=== PATIENT | female | born 1975 | race Caucasian/White ===

== ENCOUNTER 2024-03-27 10:45 | Emergency (ER) | payer BC, SELFPAY ==
[2024-03-27] VITALS (10 sets, daily range): BP systolic 134–213; BP diastolic 75–107; BMI 35.9
[2024-03-27 11:16] LABS: % Basophils 0.4 % (0-2); % Eosinophils 0.4 % (0-6); % Immature Granulocytes 0.3 % (0-0.5); % Lymphocytes 17.2 % (20.5-51.1); % Monocytes 5.8 % (1.7-9.3); % Neutrophils 75.9 % (42.2-75.2); Absolute Lymphocytes 1.3 10^3/uL (1.2-3.4); Absolute Monocytes 0.4 10^3/uL (0.1-0.6); Absolute Neutrophils 5.7 10^3/uL (1.4-6.5); Hematocrit 39.3 % (37.0-47.0); Hemoglobin 12.7 g/dL (12.0-16.0); Mean Corp Hgb Conc. 32.3 g/dL (33.0-37.0); Mean Corpuscular Hgb 24.3 pg (27.0-31.0); Mean Corpuscular Volume 75.1 fL (81.0-99.0); Mean Platelet Volume 9.8 fL (7.4-10.4); Nucleated Red Blood Cells % 0 %; Platelet Count 277 10^3/uL (130-400); Red Blood Cell Count 5.23 10^6/uL (4.20-5.40); Red Cell Dist. Width 23.3 % (11.5-14.5); White Blood Cell Count 7.6 10^3/uL (4.8-10.8)
[2024-03-27 11:48] LABS: HCG, Serum Qualitative Screen Negative
[2024-03-27 11:52] LABS: ALT (SGPT) 24 U/L (0-35); AST (SGOT) 29 U/L (14-36); Albumin 4.7 g/dl (3.5-5.0); Alkaline Phosphatase 69 U/L (38-126); Blood Urea Nitrogen 17 mg/dl (7-17); Calcium 9.4 mg/dl (8.4-10.2); Carbon Dioxide 27 mmol/L (22-30); Chloride 102 mmol/L (98-107); Estimated Creatinine Clearance 107 ml/min; Glucose 109 mg/dl (70-99); Sodium 137 mmol/L (135-145); Total Bilirubin 0.6 mg/dl (0.2-1.3); Total Protein 7.2 g/dl (6.3-8.2); eGFR > 60.00
--- NOTE | 2024-03-27 12:14 | ED.GENMED ---
History of Present Illness
<Clif Malcolm MD, Resident - Last Filed: 03/28/24 07:26>
General
Chief Complaint: Vaginal Bleeding
Time Seen by Provider: 03/27/24 11:36
History of Present Illness
History of Present Illness:
48-year-old female presented to the ED with complaints of vaginal bleeding. Patient states that her symptoms started 8 months ago when she noticed change in her cycles. Patient reports of breakthrough bleeding, intermenstrual bleeding which occurs
for 1 to 2 days with light flow. Patient states that this time her cycle started on March 20 and almost ended on March 26. Yesterday after dinner around 8 PM patient noticed trickle of blood flowing she, she had to change pads every hour , soaked with
blood and very large clots . Some of the clots were so large that she had to manually push them down. Bleeding was accompanied with lower abdominal cramps. Patient denies postcoital bleeding, pain with defecation, constant abdominal pain.
Past History
<Clif Malcolm MD, Resident - Last Filed: 03/28/24 07:26>
Past History
ED Past Medical History: HTN and Other (Benign PVCs )
ED Past Surgical History:
Social History
Tobacco: Non-smoker
Alcohol: None
Personal:
Living: with family
Family History
Family History: Other (Colon cancer and lung cancer )
Phy Exam
<Clif Malcolm MD, Resident - Last Filed: 03/28/24 07:26>
Physical Exam
Physical Exam:
well appearing, no apparent distress
General Physical Exam
General Presentation: well appearing and no apparent distress
Cardiovascular Exam
Cardiovascular Exam: regular rate/rhythm
Pulmonary Exam
Pulmonary Exam: lungs clear
Gastrointestinal Exam
Gastrointestinal Exam: normal bowel sounds, non tender, soft and non distended
Course
<Clif Malcolm MD, Resident - Last Filed: 03/28/24 07:26>
Orders/Labs/Results
Orders:
Orders
03/27/24 11:03
Test Result ONCE
03/27/24 11:08
Complete Blood Count/With Diff Urgent
Comprehensive Metabolic Panel Urgent
Ferritin Urgent
Comment: ADD ON
HCG, Serum Qualitative Screen Urgent
03/27/24 12:22
Add On- LAB Urgent
Tests Added?: ferritin
03/27/24 12:34
US Pelvis W Transvag Combined Urgent
Reason For Exam: abnormal uterine bleeding
03/27/24 15:55
Tranexamic Acid [Cyklokapron] 1,300 mg PO ONCE ONE
Abnormal Lab Results
03/27/24
11:08
MCV 75.1 L fL
(81.0-99.0)
MCH 24.3 L pg
(27.0-31.0)
MCHC 32.3 L g/dL
(33.0-37.0)
RDW 23.3 H %
(11.5-14.5)
Neutrophils % 75.9 H %
(42.2-75.2)
Lymphocytes % 17.2 L %
(20.5-51.1)
Glucose 109 H mg/dl
(70-99)
03/27/24 11:08
03/27/24 11:08
Vital Signs
Initial and Last Documented VS:
Initial Vital Signs
Temp Pulse Resp BP Pulse Ox
98.2 F 66 16 191/107 98
03/27/24 11:01 03/27/24 11:01 03/27/24 11:01 03/27/24 11:01 03/27/24 11:01
Last Documented Vital Signs
Temp Pulse Resp BP Pulse Ox
98.2 F 55 18 171/88 99
03/27/24 11:01 03/27/24 16:18 03/27/24 16:17 03/27/24 16:17 03/27/24 16:17
<Fernando Tanner MD - Last Filed: 03/27/24 17:23>
Orders/Labs/Results
Orders:
Orders
03/27/24 11:03
Test Result ONCE
03/27/24 11:08
Complete Blood Count/With Diff Urgent
Comprehensive Metabolic Panel Urgent
Ferritin Urgent
Comment: ADD ON
HCG, Serum Qualitative Screen Urgent
03/27/24 12:22
Add On- LAB Urgent
Tests Added?: ferritin
03/27/24 12:34
US Pelvis W Transvag Combined Urgent
Reason For Exam: abnormal uterine bleeding
03/27/24 15:55
Tranexamic Acid [Cyklokapron] 1,300 mg PO ONCE ONE
Abnormal Lab Results
03/27/24
11:08
MCV 75.1 L fL
(81.0-99.0)
MCH 24.3 L pg
(27.0-31.0)
MCHC 32.3 L g/dL
(33.0-37.0)
RDW 23.3 H %
(11.5-14.5)
Neutrophils % 75.9 H %
(42.2-75.2)
Lymphocytes % 17.2 L %
(20.5-51.1)
Glucose 109 H mg/dl
(70-99)
03/27/24 11:08
03/27/24 11:08
Vital Signs
Initial and Last Documented VS:
Initial Vital Signs
Temp Pulse Resp BP Pulse Ox
98.2 F 66 16 191/107 98
03/27/24 11:01 03/27/24 11:01 03/27/24 11:01 03/27/24 11:01 03/27/24 11:01
Last Documented Vital Signs
Temp Pulse Resp BP Pulse Ox
98.2 F 55 18 171/88 99
03/27/24 11:01 03/27/24 16:18 03/27/24 16:17 03/27/24 16:17 03/27/24 16:17
<Clif Malcolm MD, Resident - Last Filed: 03/28/24 07:26>
*Critical Care Note
Total Time (30-74mins, 75-104mins- exclusive of procedures): Not Applicable
<Clif Malcolm MD, Resident - Last Filed: 03/28/24 07:26>
Update Note
Update Note:
48-year-old female presented to the ED with abnormal uterine bleeding .
D/D-
#1 leiomyoma- more likely #2 endometrial cervical polyps #3 premenopausal symptoms
Patient is hemodynamiccaly stable, no hemorrhage.
-Will check CBC, B- HcG, Pelvic US
- Repeat H&h in 2 hours
-If everything stable then trial of OCP to decrease vaginal bleeding
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
ED Attending Note
<Clif Malcolm MD, Resident - Last Filed: 03/28/24 07:26>
-
Portions of this chart may have been created with voice recognition software.� Occasional wrong word or��sound alike� substitutions may have occurred due to the inherent limitations of voice recognition software.
<Fernando Tanner MD - Last Filed: 03/27/24 17:23>
ED Attending Note
Patient seen and examined by attending physician: Yes
I performed a history and physical exam of patient and discussed management with resident, I reviewed resident's note and agree with documented findings and plan of care.: Yes
ED Attending Note:
I have seen and evaluated the patient with a [id number] encounter. I have spoken to the resident and involved in the medical history, the physical exam, medical decision making.
Evaluation and management service: agree unless noted differently below.
Results interpretation: agree unless noted differently below.
Focused HPI: 48-year-old female with past medical history of hypertension presents to the emergency room for evaluation of vaginal bleeding. Patient reports that she started her normal menstrual period 03/20/2024 and was having bleeding for about 6
days; she says over the past few days she had essentially no bleeding only slight spotting but today when she woke up had heavy bleeding once again weeks with clots. She does note that generally speaking over the past 8 to 10 months her menstrual
periods have been longer than usual and heavier than usual but have not typically last this long and she does not typically have rebound or bleeding like this. Came to the emergency room for assessment. She denies any dizziness or lightheadedness.
She denies any abdominal pain. She denies any chest pain or shortness of breath. She denies any other complaints.
Physical exam: Awake alert not in distress. Hypertensive but otherwise normal vitals. Abdomen soft, nontender to deep palpation. On pelvic examination she has some pooling of blood in the vaginal vault with clots but no heavy hemorrhage, closed
os.
Medical Decision Makin-year-old female presents for evaluation of dysfunctional uterine bleeding. Will send labs including a CBC and a CMP, hCG. Check pelvic ultrasound. Reassess after the above.
Labs reviewed: CBC shows normal hemoglobin, CMP unremarkable. hCG negative. Pelvic ultrasound shows some heterogeneity of the endometrium�cannot exclude endometrial mass. Case discussed with BUSINESS QUALITY ASSURANCE ANALYST. Recommended treating with TXA for bleeding.
They will follow-up with patient in the office. Patient is comfortable this plan. Provided first dose of TXA here. All questions answered.
Discharge Plan
Departure
Patient Disposition: Home (Routine Discharge)
Date of Disposition: 03/27/24
Time of Disposition: 15:55
Patient with high blood pressure during this ER visit?: Yes
Discharge Problem:
Dysfunctional uterine bleeding, Hypertension
Instructions: Heavy Periods (DC), BLOOD PRESSURE
Prescriptions:
New
tranexamic acid 650 mg tablet
1,300 mg PO TID 5 Days Qty: 30 0RF
No Action
Labetalol
100 mg PO BID
ibuprofen 200 MG capsule
400 mg PO Q4H
PERCOCET 5-325 MG TABLET
1 tab PO Q4H PRN (Reason: pain)
doxycycline hyclate 100 mg capsule
100 mg PO BID Qty: 14 0RF
oxycodone-acetaminophen [Percocet] 5-325 mg tablet
1 tab PO Q4HPRN PRN (Reason: pain) Qty: 15 0RF
oxycodone-acetaminophen [Percocet] 5-325 mg tablet
1 tab PO Q4HPRN PRN (Reason: pain) Qty: 10 0RF
Referrals:
Pam Simpson PA [Family Provider] - Follow up in 5-7 days (To discuss elevated blood pressure)
Tish Weber MD [Active] - Call in 1-3 days for appt (BUSINESS QUALITY ASSURANCE ANALYST)
Activity Restrictions/Additional Instructions:
Thank you for visiting the Emergency Department at [facility].
1. Please schedule a follow up appointment as directed. Call first thing tomorrow morning to make an appointment.
2. If indicated, please take your medications as instructed and indicated on discharge paperwork.
3. If any of your symptoms do not improve, or persist, or become more severe within 6-12 hours, please return to the emergency department for further care.
4. Please return to the emergency department if you develop a headache, neck pain/stiffness, fever greater than 100.4F, chest pain, shortness of breath, persistent nausea, vomiting, slurred speech, difficulty walking, numbness/tingling, weakness,
signs of infection or any other symptoms that are worrisome to you.
Please call [phone] if you have any questions.
Interventions
Interventions:
*Risk Screen - Suicide Last Done: 03/27/24 11:29
*General Assessment Last Done: 03/27/24 11:29
*Neglect/Abuse Screening Last Done: 03/27/24 11:29
*ED COVID-19 Vaccine History Last Done: 03/27/24 11:29
*Nursing Disposition Last Done: 03/27/24 16:20
ED-Female Genitourinary Assessment Last Done: 03/27/24 11:29
Discharge Date and Time
Discharge Date/Time: 03/27/24 16:20
Print Language: LIBERIAN
[2024-03-27 14:21] LABS: Ferritin 9.9 ng/ml (6.24-137)
[2024-03-27] MEDS: CYKLOKAPRON 1300 MG PO (16:15)
== END 2024-03-27 16:20 | disposition home or self-care (01) ==
LOC: EMR 10:45
PROVIDERS: Emergency Medicine; EMERGENCY PHYSICIAN Emergency Medicine; FAMILY PHYSICIAN Physician Assistant Medical
DX: N93.8 Other specified abnormal uterine and vaginal bleeding (principal); I10 Essential (primary) hypertension; Z80.0 Family history of malignant neoplasm of digestive organs; Z80.1 Family history of malignant neoplasm of trachea, bronchus and lung; I49.3 Ventricular premature depolarization
CPT/HCPCS: 99284; 76830; 76856; 80053; 82728; 84703; 85025

== ENCOUNTER → 2024-07-27 18:38 | Outpatient (REF) | payer BC, SELFPAY | LOC: MRI 18:38 | PROVIDERS: ATTENDING PHYSICIAN Advanced Practice Midwife; FAMILY PHYSICIAN Physician Assistant Medical | DX: R93.89 Abnormal findings on diagnostic imaging of other specified body structures (principal) | CPT/HCPCS: 72197; A9575 ==

== ENCOUNTER 2024-09-07 22:12 | Inpatient (IN) | payer BC, SELFPAY ==
[2024-09-07] VITALS (25 sets, daily range): BP systolic 124–242; BP diastolic 71–137; BMI 32.9
[2024-09-07] MEDS: ATIVAN 1 MG IV (20:29)
[2024-09-07] MEDS: TRANDATE 10 MG IV (20:36)
--- NOTE | 2024-09-07 20:36 | ED.CVA ---
History of Present Illness
General
Chief Complaint: CVA/TIA Symptoms
Time Seen by Provider: 09/07/24 20:03
Onset of Stroke Symptoms
Onset of symptoms known: Yes
Date of onset of symptoms: 09/07/24
Time of onset of symptoms: 19:00
Time pt last seen normal is known: Yes
Date last time pt seen normal: 09/07/24
Time last time pt seen normal: 19:00
History of Present Illness
History of Present Illness:
TIME OF INITIAL ENCOUNTER: Approximately 8:05 PM
HPI: At around 7 PM tonight, the patient noted aphasia and has been having trouble with word finding. Upon arrival, it was noted that she was rather tremulous in the right greater than left upper extremities. She was also found to be markedly
hypertensive. She had somewhat of a left-sided headache. Upon arrival, she was somewhat of a limited historian.
EXAM:
GENERAL: The patient appeared very anxious upon arrival, markedly hypertensive with systolics in the 240s
HEENT: Moist oral mucosa
CARDIOVASCULAR: No murmurs, normal heart rate, regular rhythm, No chest wall tenderness
PULMONARY: No respiratory distress, breath sounds are clear and equal
ABDOMEN: Soft with no peritoneal signs, no tenderness
NEUROLOGIC: Appears tremulous particularly in the right upper extremity greater than the left upper extremity, 5 out of 5 strength in all extremities, no definite coordination deficits, word finding difficulties/moderate aphasia, she was unable to
communicate via writing as well, no sensory loss
PSYCHIATRIC: Appropriate mental status, normal insight and judgement, appears rather anxious
EXTREMITIES: Nontender, no edema, moves all extremities equally
SKIN: No rash, no lesions
NUMBER AND COMPLEXITY OF PROBLEMS ADDRESSED AT THE ENCOUNTER
� Chronic conditions affecting care: High blood pressure
� Acute Exacerbation and/or Progression of Chronic Illness: This is an acute problem
� Differential Diagnosis includes: Hypertensive emergency, CVA, intracranial bleed, severe anxiety
AMOUNT AND/OR COMPLEXITY OF DATA TO BE REVIEWED AND ANALYZED
� I performed an independent evaluation of and my interpretation is:
EKG: Sinus 74, left axis deviation, nonspecific ST abnormality
CT: Noncontrast CT head is unremarkable and CTA of the head and neck are also unremarkable
X-rays:
Laboratory Studies: White count 8.4, hemoglobin 14.6, potassium slightly low at 3.3, coags unremarkable, hCG negative
Other:
� Review of other/old records: I reviewed records, the patient has been here for dysfunctional uterine bleeding
� Clinical information was obtained by an independent historian: I spoke to family at bedside
� Prescriptions/Medications Considered but not given: Considered TNK�see below
� Further testing considered but not performed:
RISK OF COMPLICATIONS AND/OR MORBIDITY OR MORTALITY OF PATIENT MANAGEMENT
� Social determinants of health affecting care: Lives at home
� Discussion with other providers: Discussed emergently and several times with Dr. Cervantes; Dr. Wade for admission
� Escalation of care including admission/observation vs risk of discharge considered: See below
ANY OTHER UPDATES:
At about a 8:10 PM, she was sent immediately for CT imaging of the brain as well as CTA of the head neck. These were negative.
Also at about 8:10 PM, I discussed case with Dr. Cervantes and we initially consider TNK. However patient's blood pressure was frequently as high as the 240s despite receiving labetalol. We then placed patient on a Cardene drip.
Initially considered TNK however Dr. Cervantes did speak to patient and family over the phone�it was felt that her symptoms had been improving therefore given the improvement along with hypertension which is still severe ultimately it was recommended
to hold off on TNK. also hesitant to give consent for TNK and does not want to take any risks of bleeding.
On Cardene, BP has improved�Dr. Helen recommends systolic to be around 150.
Past History
Past History
ED Past Medical History: HTN and Other (Benign PVCs )
ED Past Surgical History:
Social History
Tobacco: Non-smoker
Alcohol: None
Personal:
Living: with family
Family History
Family History: Other (Colon cancer and lung cancer )
Phy Exam
Physical Exam
Physical Exam:
See HPI
Course
Orders/Labs/Results
Orders:
Orders
09/07/24 20:06
CT HEAD STROKE ALERT W/o Cont Urgent
Comment:
Reason For Exam: acute severe aphasia
CT HEAD/NECK ANG STROKE ALERT Urgent
Comment:
Reason For Exam: acute severe aphasia
09/07/24 20:07
Test Result ONCE
09/07/24 20:09
Electrocardiogram (*1) Urgent
Reason for Study: TIA/Stroke
EKG- Treatment ONCE
09/07/24 20:25
Lorazepam [Ativan] 2 mg .ROUTE .STK-MED ONE
09/07/24 20:28
Labetalol HCl [Trandate] 10 mg IV NOW STA
Lorazepam [Ativan] 1 mg IV NOW STA
09/07/24 20:32
Complete Blood Count/With Diff Urgent
Comprehensive Metabolic Panel Urgent
HCG, Serum Qualitative Screen Urgent
Magnesium Urgent
Comment: ADD ON
09/07/24 20:38
Tenecteplase [Tnkase] 24 mg Syringe [Syringe Non-Pump] 0 ml IV NOW
Provider explained risk/benefits to patient &/or caregiver?: Yes
Blood pressure: 234/137
09/07/24 20:45
Nicardipine 40 mg/200 ml [Cardene] 40 mg in 200 ml IV PER PROTOCOL
Initial dose in mg/hr, then titrate:: 5
Titrate to keep:: BP < 180/105 mmHg
Titrate by mg/hr:: 2.5 mg/hr
Frequency of titrations (minutes):: 5-15 minutes
Maximum dose in mg/hr:: 15
Begin to taper infusion when:: Remained at goal for 2hrs
Taper by mg/hr:: 2.5 mg/hr
Frequency of taper (minutes) if patient maintains goal:: every 15-30 minutes
Taper to off?: Yes
If infusion off & no longer maintaining goal:: Contact Provider
09/07/24 20:49
PTT Urgent
Prothrombin Time Urgent
09/07/24 21:19
Admit/Transfer Patient As Directed
Co-Sign Provider:
Level of Care: Inpatient admission
Assign to:: ICU
Physician / Group: angelo
Diagnosis: HTn emergency/TIA
Reason for Hospitalization: HTn urgency
TIA
Expected length of stay greater than two midnights?: Yes
ELOS- Estimated Length of Stay in days: 3
I certify the patient meets the requirements for IP care: Yes
PRN Pain Medication Management As Directed
May give lesser potent ordered pain med per pt: Yes
preference::
Protocol:: Medication orders for pain may be administered in a
manner that supports deferring to patient preference
when the pt is:
- Requesting an ordered lesser potent pain medication.
Least to most potent pain medications are defined
as: acetaminophen < NSAID < tramadol < opioids
(morphine, oxycodone, hydromorphone).
- Requesting a lesser dose of the same medication IF
ORDERED.
- Requesting a less intrusive route of administration
if both routes are prescribed by the provider (PO <
IV).
09/07/24 21:20
Code Status As Directed
Resuscitation Status: Full Code
09/07/24 21:27
Add On- LAB Stat
Tests Added?: magnesium
09/07/24 21:42
Acetaminophen [Tylenol] 650 mg PO Q4HPRN PRN
09/07/24 21:45
Ondansetron Injectable [Zofran] 4 mg IV NOW STA
Potassium Chloride [KCl] 40 meq PO ONCE ONE
09/07/24 22:00
Flush (0.9% Sodium Chloride) [Flush (Nss)] See Dose Instructions IV PER PROTOCOL
09/07/24 22:11
Clopidogrel Bisulfate [Plavix] 300 mg PO NOW STA
Abnormal Lab Results
09/07/24
20:32
RBC 5.41 H 10^6/uL
(4.20-5.40)
MCHC 32.5 L g/dL
(33.0-37.0)
Absolute Monos (auto) 0.8 H 10^3/uL
(0.1-0.6)
Potassium 3.3 L mmol/L
(3.5-5.1)
Magnesium 2.4 H mg/dl
(1.6-2.3)
ALT 40 H U/L
(0-35)
Albumin 5.2 H g/dl
(3.5-5.0)
09/07/24 20:32
09/07/24 20:32
Vital Signs
Initial and Last Documented VS:
Initial Vital Signs
Temp Pulse Resp BP Pulse Ox
36.6 C 87 18 234/137 100
09/07/24 19:55 09/07/24 19:55 09/07/24 19:55 09/07/24 19:55 09/07/24 19:55
Last Documented Vital Signs
Temp Pulse Resp BP Pulse Ox
36.6 C 88 18 173/91 100
09/07/24 19:55 09/07/24 21:40 09/07/24 21:30 09/07/24 21:40 09/07/24 21:40
*Critical Care Note
Total Time (30-74mins, 75-104mins- exclusive of procedures): Not Applicable
ED Attending Note
-
Portions of this chart may have been created with voice recognition software.� Occasional wrong word or��sound alike� substitutions may have occurred due to the inherent limitations of voice recognition software.
Discharge Plan
Departure
Patient Disposition: Admit
Date of Disposition: 09/07/24
Time of Disposition: 20:52
Presentation/result/management discussed w/ accepting MD/DO: Hospitalist
Discharge Problem:
Hypertensive emergency
Interventions
Interventions:
*Risk Screen - Suicide Last Done: 09/07/24 21:38
*General Assessment Last Done: 09/07/24 21:39
*Neglect/Abuse Screening Last Done: 09/07/24 21:38
*ED COVID-19 Vaccine History Last Done: 09/07/24 21:38
ED- Neurological Assessment Last Done: 09/07/24 21:19
ED- Cardiac Assessment Last Done: 09/07/24 21:37
ED Swallowing Screen Last Done: 09/07/24 21:36
[2024-09-07 20:38] LABS: % Basophils 0.6 % (0-2); % Eosinophils 1.8 % (0-6); % Immature Granulocytes 0.1 % (0-0.5); % Lymphocytes 38.5 % (20.5-51.1); % Monocytes 9.3 % (1.7-9.3); % Neutrophils 49.7 % (42.2-75.2); Absolute Basophils 0.1 10^3/uL (0-0.2); Absolute Eosinophils 0.2 10^3/uL (0-0.7); Absolute Lymphocytes 3.2 10^3/uL (1.2-3.4); Absolute Monocytes 0.8 10^3/uL (0.1-0.6); Absolute Neutrophils 4.2 10^3/uL (1.4-6.5); Hematocrit 44.9 % (37.0-47.0); Hemoglobin 14.6 g/dL (12.0-16.0); Mean Corp Hgb Conc. 32.5 g/dL (33.0-37.0); Mean Platelet Volume 10.2 fL (7.4-10.4); Nucleated Red Blood Cells % 0 %; Platelet Count 272 10^3/uL (130-400); Red Blood Cell Count 5.41 10^6/uL (4.20-5.40); Red Cell Dist. Width 14.3 % (11.5-14.5); White Blood Cell Count 8.4 10^3/uL (4.8-10.8)
[2024-09-07] MEDS: CARDENE 200 IV (20:46)
--- NOTE | 2024-09-07 20:51 | HPS.HSE ---
Family Physician
-
Family Physician: Pam Simpson
Chief Complaint
-
headache
History of Present Illness
48-year-old with past medical history for hypertension, noncompliance with hypertensive medications presented to us with left-sided headache and expressive aphasia while she was in the kitchen. She felt some bright light in her left eye. Some
tingling in ER right second and third fingers. Patient was not able to express herself. denied any focal weakness. Patient denied any dizzy or syncope. Patient denied any fever, chills, congestion, cough. Patient denied chest pain or short of
breath. Patient denied abdominal pain, nausea, vomiting, diarrhea. Patient denied dysuria hematuria.
Head CT and CTA negative. Patient did not receive TNK. Patient was noted hypotensive in ER. Initiated on Cardene drip. Admitting for further management
Medical History
Past Medical History
Past Medical History: Reports Other
Additional Past Medical History:
Iron deficiency
Melanoma
Hypertension
Past Surgical History: Reports Other
Additional Past Surgical History:
Bilateral tubal ligation
Breast reduction
Melanoma excision
Social History
Tobacco: Non-smoker
Alcohol: None
Drug: None
Personal:
Living: With Family
Family History
Family History: Not pertinent
Allergies / Home Medications
Allergies reflects when Allergies were last updated in [employer]
Home Medications with original date entered in [employer]
Allergy/Medication List:
Allergies
Allergy/AdvReac Type Severity Reaction Status Date / Time
No Known Allergies Allergy Verified 09/07/24 19:55
Home Medications
Labetalol 100 mg PO BID 01/07/10
PERCOCET 5-325 MG TABLET 1 tab PO Q4H PRN pain 05/19/10
ibuprofen 200 mg capsule 400 mg PO Q4H 05/19/10
oxycodone-acetaminophen 5 mg-325 mg tablet (Percocet) 1 tab PO Q4HPRN PRN pain #15 tabs 09/08/22
oxycodone-acetaminophen 5 mg-325 mg tablet (Percocet) 1 tab PO Q4HPRN PRN pain #10 tabs 09/10/22
tranexamic acid 650 mg tablet 1,300 mg (2 x 650 mg) PO TID 5 days #30 tabs 03/27/24
amlodipine 10 mg tablet 10 mg PO DAILY 09/07/24
hydrochlorothiazide 25 mg tablet 25 mg PO DAILY 09/07/24
losartan 100 mg tablet 100 mg PO DAILY 09/07/24
metoprolol succinate 100 mg tablet,extended release 24 hr 100 mg PO DAILY 09/07/24
norethindrone acetate 5 mg tablet 5 mg PO DAILY 09/07/24
rosuvastatin 5 mg tablet 5 mg PO DAILY 09/07/24
Review of Systems
-
Constitutional: Reports No Symptoms
EENT: Reports No Symptoms
Respiratory: Reports No Symptoms
Cardiac: Reports No Symptoms
Abdomen/GI: Reports No Symptoms
: Reports No Symptoms
Musculoskeletal: Reports No Symptoms
Skin: Reports No Symptoms
Neurological: Reports Headache and Other (Expressive aphasia)
Endocrine: Reports No Symptoms
Hematologic/Lymphatic: Reports No Symptoms
Psych: Reports No Symptoms
Physical Exam
Vital Signs
Vital Signs
Temp Pulse Resp BP Pulse Ox
97.8 F 75 18 242/120 100
09/07/24 19:55 09/07/24 20:36 09/07/24 20:30 09/07/24 20:36 09/07/24 19:55
Physical Exam
General: Well Developed, Well Nourished and No Apparent Distress
HEENT: NormoCephalic, Moist mucous membranes and Atraumatic
Respiratory: Clear
Cardiac: S1/S2 and Regular Rhythm; No Murmur or Rub
GI: Soft, Non Tender, Non Distended and Normal Bowel Sounds; No Organomegaly
Rectal: Deferred by Provider
Musculoskeletal: No Clubbing, No Cyanosis and No Edema
Skin: No Rash
Neuro: AO x 3 and Nonfocal/grossly intact
Psych: Calm
Laboratory Results
-
09/07/24 20:32
Data Reviewed
-
CT Scan: Report Reviewed by me
Lab Data: Labs Reviewed by me
Impression/Plan
-
# Aphasia rule out acute CVA with hypertension emergency
-Head neck CTA with impression of The cervical carotid and vertebral arteries are patent without significant plaque, stenosis, occlusion, or dissection.No [place] region aneurysm or stenosis.No cerebral artery significant plaque, stenosis,
thrombus, or occlusion.
-Head CT with no acute findings
-EKG with normal sinus rhythm
-Patient received a dose of labetalol, lorazepam
-Continue Cardene drip
-Obtain MRI in the morning
-Obtain A1c and lipid profile
-Neurology consult
-asa
-hold statin
-Losartan labetalol continued
#HLD
-statin continued
#DVT prophylaxis
-SCD
# CODE STATUS
-Full code
[2024-09-07 20:54] LABS: HCG, Serum Qualitative Screen Negative
[2024-09-07 21:00] LABS: ALT (SGPT) 40 U/L (0-35); AST (SGOT) 32 U/L (14-36); Albumin 5.2 g/dl (3.5-5.0); Alkaline Phosphatase 52 U/L (38-126); Blood Urea Nitrogen 13 mg/dl (7-17); Calcium 9.3 mg/dl (8.4-10.2); Carbon Dioxide 22 mmol/L (22-30); Chloride 99 mmol/L (98-107); Estimated Creatinine Clearance 91 ml/min; Glucose 91 mg/dl (70-99); Potassium 3.3 mmol/L (3.5-5.1); Sodium 137 mmol/L (135-145); Total Bilirubin 0.3 mg/dl (0.2-1.3); Total Protein 8.1 g/dl (6.3-8.2); eGFR > 60.00
[2024-09-07 21:04] LABS: APTT 31.6 Sec (23.4-35.0); PT 12.6 Sec (11.4-14.6)
--- NOTE | 2024-09-07 21:17 | W.PN.UPDATE ---
Update Note
Progress Note Update
This is a 48-year-old female with past medical history significant for dysfunctional uterine bleeding and uncontrolled hypertension presenting to the emergency department with acute onset of aphasia at around 7 PM.
Patient reports been in usual state of health and completely asymptomatic when abruptly at 7 PM she reported having a left-sided headache that appears to be localized behind her eye. She reports some mild vision changes with a scintillating
scotoma. Then she reported that she was unable to speak. She was able to hear see and process what people are doing and saying but she could not form the words or speak them out. There was no facial droop. He reports left-sided finger numbness.
Otherwise denies any weakness. She denies any palpitations lightheadedness or dizziness. She was tremulous and was brought to the emergency department.
In the emergency department the patient was severely hypertensive to 240/120 pulse was 75 with a respiratory of 18 she was satting 100% on room air. CT of the head was negative. CT angio shows no acute findings and negative for dissection,
aneurysm or acute bleed. Patient CBC was unremarkable with normalization of her hemoglobin. Electrolytes BUN/creatinine are currently pending.
At the time of my evaluation the patient's neurological exam was completely intact with NIHSS equals 0. She is no longer aphasic. No word finding difficulties dysarthria or any other focal neurological deficits. She denies any vision changes.
She still complains of a headache. Per discussion with neuro patient does not require TNK at this time. Will be admitted for hypertensive urgency/emergency and stroke w/u.
1. CVA/TIA - Suspect possibly migrainous headache (h/o) with uncontrolled BP vs TIA. Initial w/u in ED negative.
- admit to icu for htn emergency
- diet as tolerated
- mri, lipid panel and a1c in am
- asa 81 for now
- BP goals SBP 150 with nicardipine gtt
- neuroconsult.
2. HTN urgency - Patient on 4 medications with uncontrolled BP. Does not appear compliant. Denies taking hctz due to polyuria and amlodipine due to joint aches/swelling.
- nidardipine overnight
- restart losartan 100 in am
- labetolol 200 bid, titrate
- stop metoprolol succinate
- consider low dose thiazide as tolerated
3. DUB - hgb recovered to normal, has outpatient recruitment manager f/u.
DVT PPX - SCDs
Code status - Full
[2024-09-07 21:57] LABS: Magnesium 2.4 mg/dl (1.6-2.3)
[2024-09-07] MEDS: TYLENOL 650 MG PO (22:06)
[2024-09-07] MEDS: ZOFRAN 4 MG IV (22:17)
[2024-09-07] MEDS: KCL 40 MEQ PO (22:19)
[2024-09-07] MEDS: PLAVIX 300 MG PO (22:25)
[2024-09-07] MEDS: TRANDATE 200 MG PO (23:45)
[2024-09-07] MEDS: COMPAZINE 5 MG IV (23:45)
[2024-09-08] VITALS (48 sets, daily range): BP systolic 102–181; BP diastolic 55–105; BMI 32.9
[2024-09-08] MEDS: KCL 260 MEQ IV (00:54)
--- NOTE | 2024-09-08 01:41 | PTCARENOTE ---
Pt received from ED. Pt belongings w/ pt. Pt oriented to unit. Pt's at bedside. Nicardipine gtt at 7.5mg/hr at handoff. Pt tremulous b/l upper extremities. Slight aphasia. NIH 1. Neuro otherwise intact. Pt w/ nausea and x1 episode of
vomiting large amount. Spoke with PITCH GATHERER Lane Mckeon about n/v, one time dose of compazine ordered and administered - see NOV.
[2024-09-08] MEDS: TYLENOL 650 MG PO ×2 (03:02→07:41)
[2024-09-08] MEDS: DILAUDID 0.5 MG IV (04:26)
[2024-09-08] MEDS: ZOFRAN 4 MG IV (05:00)
--- NOTE | 2024-09-08 05:25 | PTCARENOTE ---
Pt c/o left-sided FRANCOIS rated 03/29 ~0300. PRN tylenol administered. Pt briefly asleep and awoke ~0410 to an 810 rated left-sided FRANCOIS. Spoke w/ LICENSED INVESTMENT SALES ASSISTANT Lane Mckeon, 0.5mg dilaudid and CT of head ordered. CT results unchanged from previous. Neuro
unchanged, slight aphasia. Pupils reactive, equal, round.
--- NOTE | 2024-09-08 05:26 | PTCARENOTE ---
Pt w/ x1 episode n/v. PRN zofran administered - see MAR.
[2024-09-08 05:55] LABS: Blood Urea Nitrogen 11 mg/dl (7-17); Carbon Dioxide 21 mmol/L (22-30); Chloride 103 mmol/L (98-107); Estimated Creatinine Clearance 102 ml/min; Glucose 120 mg/dl (70-99); HDL Cholesterol 49 mg/dl; LDL Cholesterol, Calculated 142 mg/dl; Potassium 4.1 mmol/L (3.5-5.1); Sodium 137 mmol/L (135-145); Total Cholesterol 204 mg/dl (50-199); Triglyceride 69 mg/dl (10-149); Very Low Density Lipoprotein 13 mg/dl (0-30); eGFR > 60.00
[2024-09-08] MEDS: COZAAR 100 MG PO (07:41)
[2024-09-08] MEDS: TRANDATE 200 MG PO ×3 (07:41→20:14)
[2024-09-08] MEDS: LOW STRENGTH ASPIRIN 81 MG PO (07:41)
[2024-09-08] MEDS: CRESTOR 5 MG PO (07:41)
--- NOTE | 2024-09-08 07:55 | CON.NEURO ---
Consultation
Order
Date of Consultation: 09/08/24
Requesting Provider: Vira Chandra CRNP
Reason for Consult: aphasia
Neurology Consultation Note.
HPI: This is a 48-year-old right-handed woman who presented to [facility] on 09/07/2022 with aphasia. According to the patient she was working at the laptop and realized that she has difficulties comprehending written language. She
was later noted to have expressive aphasia but her spouse prompted the evaluation. Ms. Katz states that she did have severe left retro-orbital headache during her ER stay. She states that the headaches are relatively new and followed recent
initiation of Norethindrone. Ms. Katz states that her aphasia lasted for several hours. No reports of motor, sensory visual changes
ER VS:234/137, 79-112,
EKG: NSR, QTc Int : 448 ms
PDMP: No recently prescribed medications
Labs: glucose 120, normal Na, WBC, Pl, Cr, LDL 142,
CT head wo contrast�no acute abnormalities
CTA head/neck�no evidence of hemodynamically significant stenosis, dissection, thrombosis or aneurysms.
PMH: HTN, DLP, BMI 32, DUB, melanoma
PSH: 3 C-sections, right thigh melanoma resection/4, bilateral tubal ligation, reduction mammoplasty,
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
FH: Father�TIA
All: No known drug allergy
ROS: Positive for 70+ pound intentional weight loss
HENT: Negative for ear pain, hearing loss, tinnitus and trouble swallowing.
Eyes: Negative. Negative for photophobia, pain and visual disturbance.
Respiratory: Negative for cough, choking and shortness of breath.
Cardiovascular: Negative for chest pain, palpitations and leg swelling.
Gastrointestinal: Negative for abdominal pain and vomiting.
Endocrine: Negative. Negative for cold intolerance.
Genitourinary: Negative for dysuria, flank pain and urgency.
Musculoskeletal: Negative for back pain, gait problem, neck pain and neck stiffness.
Skin: Negative for rash.
Allergic/Immunologic: Negative. Negative for immunocompromised state.
Neurological: Positive for transient aphasia and headache.
Psychiatric/Behavioral: Negative for behavioral problems, confusion and hallucinations.
General: Well developed. In no acute distress.
Cardio: Regular rate and rhythm without murmur. Extremities are without cyanosis or edema.
Neuro:
Mental Status: Alert, oriented to person, place, and date. Normal attention and recall. Good fund of knowledge. Able to name, repeat, calculate. Follows complex requests across the midline. Comprehension, naming, and repetition intact.
Cranial Nerves: . Pupils are equally round and reactive to light. EOMs full. Visual grant full to confrontation. Min asymmetric blinking. No ptosis. No nystagmus. V1-V3 intact to light touch and pinprick bilaterally, symmetric. Face
symmetric. Normal hearing AU. The palate elevated well. SCMs and traps 5/5. Tongue midline. No dysarthria.
Motor: Normal bulk and tone. No pronator or arm drift. Strength 5/5 throughout. No clonus.
Reflexes: 2+ throughout the upper extremities and knees. Plantar responses flexor bilaterally.
Sensory: Normal pinprick, vibration and JPS.
Coordination: No dysmetria or tremor.
Gait: deferred
Assessment and Plan:
I. Left MCA syndrome. Differential diagnosis includes vascular versus migraine aura.
II. Hypertensive emergency
III. Dyslipidemia
-Continue Telemetry monitoring.
-Aspiration precautions.
-Cautious lowering of BP by approximately 15 % during the first 24 hours is SBP >220 mmHg or diastolic blood pressure >120 mmHg;
-Restart antihypertensive medications during if BP>140/90 mmHg who are neurologically stable in 24 to 48 hours after stroke onset;
-TTE with bubble studies, if unremarkable-please proceed with [place].
-ASA 81 mg QD
-Plavix 75 mg QD for 21 days.
-Lipitor 40 mg QHS.
-Brain MRI without radha
-PT.
-DVT prophylaxis.
I personally reviewed all radiology and labs along with past medical records pertinent to current medical problems. Total time spent in patient care is 60 minutes.
Thank you for allowing us to participate in the care of this patient. We will continue to follow. Please do not hesitate to contact us with any questions or concerns.
Subjective/Objective
Subjective Data
Date of Service: September 08, 2024
Objective Data
Vital Signs
Temp Pulse Resp BP Pulse Ox
36.6 C 78 18 151/78 96
09/08/24 07:40 09/08/24 07:41 09/08/24 07:00 09/08/24 07:41 09/08/24 07:00
Lab Results
09/07/24 20:32
09/08/24 05:09
PT 12.6 Sec (11.4-14.6) 09/07/24 20:49
INR 0.90 09/07/24 20:49
APTT 31.6 Sec (23.4-35.0) 09/07/24 20:49
Sodium 137 mmol/L (135-145) 09/08/24 05:09
Potassium 4.1 mmol/L (3.5-5.1) 09/08/24 05:09
BUN 11 mg/dl (7-17) 09/08/24 05:09
Glucose 120 mg/dl (70-99) H 09/08/24 05:09
Calcium 9.0 mg/dl (8.4-10.2) 09/08/24 05:09
LDL Cholesterol, Calc 142 mg/dl 09/08/24 05:09
Patient Allergies
No Known Allergies Allergy (Verified 09/07/24 19:55)
Medications
-
Active Medications
Generic Name Dose Route Start Last Admin
Trade Name Freq PRN Reason Stop Dose Admin
Acetaminophen 650 mg 09/07/24 21:42 09/08/24 07:41
Acetaminophen 325 Mg Tablet PO 10/05/24 21:41 650 mg
Q4HPRN PRN Administration
FRANCOIS, mild pain, or temp >100.4F
Acetaminophen 650 mg 09/07/24 22:55
Acetaminophen 650 Mg Rectal Suppository RECTAL 10/05/24 22:54
Q4HPRN PRN
FRANCOIS, mild pain, or temp >100.4F
Aspirin 81 mg 09/08/24 08:00 09/08/24 07:41
Aspirin 81 Mg Chewable Tablet PO 10/06/24 07:59 81 mg
DAILY BERNICE Administration
Nicardipine/Sodium Chloride 40 mg in 200 mls @ 0 mls/hr 09/07/24 22:55
Cardene IV
PER PROTOCOL BERNICE
Protocol
Per Protocol
Labetalol HCl 200 mg 09/07/24 22:55 09/08/24 07:41
Labetalol 200 Mg Tablet PO 10/05/24 22:54 200 mg
TID BERNICE Administration
Losartan Potassium 100 mg 09/08/24 08:00 09/08/24 07:41
Losartan 100 Mg Tablet PO 10/06/24 07:59 100 mg
DAILY BERNICE Administration
Ondansetron HCl 4 mg 09/07/24 22:59 09/08/24 05:00
Ondansetron 4 Mg/2 Ml Vial IV 10/05/24 22:58 4 mg
Q6HPRN PRN Administration
NAUSEA/VOMITING
Rosuvastatin Calcium 5 mg 09/08/24 08:00 09/08/24 07:41
Rosuvastatin (Crestor) 5 Mg Tablet PO 10/06/24 07:59 5 mg
DAILY BERNICE Administration
Sodium Chloride 0 flush 09/07/24 23:00
Sodium Chloride 0.9% (Flush) Syringe IV 10/05/24 22:59
PER PROTOCOL BERNICE
Home Medications
�Medication �Instructions �Recorded
Labetalol 100 mg PO BID 01/07/10
amlodipine 10 mg tablet 10 mg PO DAILY 09/07/24
losartan 100 mg tablet 100 mg PO DAILY 09/07/24
metoprolol succinate 100 mg 100 mg PO DAILY 09/07/24
tablet,extended release 24 hr
norethindrone acetate 5 mg tablet 5 mg PO DAILY 09/07/24
rosuvastatin 5 mg tablet 5 mg PO DAILY 09/07/24
Vital Signs and Labs
-
Vital Signs and Labs:
Vital Signs
Temp Pulse Resp BP Pulse Ox
36.6 C 76 13 161/87 97
09/08/24 07:40 09/08/24 09:04 09/08/24 09:04 09/08/24 09:04 09/08/24 09:04
Lab Results
09/07/24 20:32
09/08/24 05:09
PT 12.6 Sec (11.4-14.6) 09/07/24 20:49
INR 0.90 09/07/24 20:49
APTT 31.6 Sec (23.4-35.0) 09/07/24 20:49
Sodium 137 mmol/L (135-145) 09/08/24 05:09
Potassium 4.1 mmol/L (3.5-5.1) 09/08/24 05:09
BUN 11 mg/dl (7-17) 09/08/24 05:09
Glucose 120 mg/dl (70-99) H 09/08/24 05:09
Calcium 9.0 mg/dl (8.4-10.2) 09/08/24 05:09
LDL Cholesterol, Calc 142 mg/dl 09/08/24 05:09
Medications
-
Medications:
Generic Name Dose Route Start Last Admin
Trade Name Freq PRN Reason Stop Dose Admin
Acetaminophen 650 mg 09/07/24 22:55
Acetaminophen 650 Mg Rectal Suppository RECTAL 10/05/24 22:54
Q4HPRN PRN
FRANCOIS, mild pain, or temp >100.4F
Acetaminophen 650 mg 09/08/24 07:56
Acetaminophen 325 Mg Tablet PO 10/05/24 21:41
Q4HPRN PRN
FRANCOIS, mild pain, or temp >100.4F
Aspirin 81 mg 09/08/24 08:00 09/08/24 07:41
Aspirin 81 Mg Chewable Tablet PO 10/06/24 07:59 81 mg
DAILY BERNICE Administration
Nicardipine/Sodium Chloride 40 mg in 200 mls @ 0 mls/hr 09/07/24 22:55
Cardene IV
PER PROTOCOL BERNICE
Protocol
Per Protocol
Labetalol HCl 200 mg 09/07/24 22:55 09/08/24 07:41
Labetalol 200 Mg Tablet PO 10/05/24 22:54 200 mg
TID BERNICE Administration
Losartan Potassium 100 mg 09/08/24 08:00 09/08/24 07:41
Losartan 100 Mg Tablet PO 10/06/24 07:59 100 mg
DAILY BERNICE Administration
Ondansetron HCl 4 mg 09/07/24 22:59 09/08/24 05:00
Ondansetron 4 Mg/2 Ml Vial IV 10/05/24 22:58 4 mg
Q6HPRN PRN Administration
NAUSEA/VOMITING
Rosuvastatin Calcium 5 mg 09/08/24 08:00 09/08/24 07:41
Rosuvastatin (Crestor) 5 Mg Tablet PO 10/06/24 07:59 5 mg
DAILY BERNICE Administration
Sodium Chloride 0 flush 09/07/24 23:00
Sodium Chloride 0.9% (Flush) Syringe IV 10/05/24 22:59
PER PROTOCOL BERNICE
Home Medications
-
Home Medications
Labetalol 100 mg PO BID Blood Pressure 01/07/10
amlodipine 10 mg tablet 10 mg PO DAILY Blood Pressure 09/07/24
losartan 100 mg tablet 100 mg PO DAILY Blood Pressure 09/07/24
metoprolol succinate 100 mg tablet,extended release 24 hr 100 mg PO DAILY Blood Pressure 09/07/24
norethindrone acetate 5 mg tablet 5 mg PO DAILY HORMONE 09/07/24
rosuvastatin 5 mg tablet 5 mg PO DAILY High Cholesterol 09/07/24
--- NOTE | 2024-09-08 07:59 | PTCARENOTE ---
patient report received, assessments per work list. mild word finding difficulty, NIH completed in handoff, unchanged per off going RN. c/o left sided headache 10/30. tylenol administered. monitor nsr, cardene remains off. abdomen soft. denies
nausea. call garcia in reach. reviewed plan of care
--- NOTE | 2024-09-08 08:23 | CON.INTV ---
Addendum entered and electronically signed by Colin Carmichael MD 09/08/24 18:07:
Patient has remained stable all day off the Cardene drip. No longer requires ICU level of care. Safe for downgrade out of ICU to telemetry. Inspector Plumbing/Pulmonary service will now sign off. Thank you for allowing us to be involved in the care of
this patient. Please reconsult if there are any additional questions/concerns, or if patient's respiratory status deteriorates.
Original Note:
Consultation
Consultation Request
Date/Time Consultation Requested: 09/07/20242305
Date/Time Consultation Performed: 09/08/2024 - 819
Requesting Provider: YAQUELIN Jones
Performing Provider: Colin Carmichael MD
Reason for Consultation: HTN crisis
Medical History
-
Chief Complaint: Slurred speech and off balance since 7 PM on 09/07/2024
History of Present Illness:
48-year-old female non-smoker with a past medical history of melanoma s/p excision, iron deficiency anemia, dysfunctional uterine bleeding currently on norethindrone, and hypertension who presents with slurred speech and being off balance since
approximately 7 PM on 09/07/2024. She says she felt a bright light in her left eye and in the ER she had tingling in her right second and third fingers. She knew what she wanted to say but she was not able to express herself. She denied any focal
weakness, dizziness or syncope. In the ER she was afebrile to 97.8 �F, pulse rate 87, breathing at 18 breaths/minute, BP 234/137 and saturating 100% on room air. Initial labs showed Hb 14.6, WBC 8.4, potassium 3.3, ALT 40, and beta-hCG negative.
CT head showed no acute intracranial abnormality. CTA head/neck showed patent cervical carotid and vertebral arteries without occlusion, stenosis or dissection. No sit[place] of [place]el aneurysm or stenosis. CXR showed no acute cardiopulmonary
process. She was given 1 mg Ativan, 10 mg labetalol and 6 mg Tylenol. Due to continued hypertension with SBP in the , she was started on Cardene drip and admitted to the ICU for further care. Inspector Plumbing services consulted for additional
management/recommendations.
Patient seen and evaluated this morning. Off Cardene drip since around 2 AM this morning. Currently - BP 161/87. She is no longer aphasic although still having difficulty saying certain words. Currently denies headache. She does endorse some
vaginal spotting as she has not taken her norethindrone in the last 1-2 days. Her children, Dilia + Prem, are at bedside. All questions were answered. Patient currently feels well, denying chest pain, SOB, abdominal pain, nausea, vomiting,
fevers chills.
PMHx: History of pneumonia with bilateral pleural effusions (2009), hypertension, melanoma, iron deficiency anemia, dysfunctional uterine bleeding currently on norethindrone
PSHx: x 3, bilateral tubal ligation (2009), breast reduction (2005), melanoma excision x 4
Past Medical History
Past Medical History: Other (Above as per HPI)
Past Surgical History: Other (Above as per HPI)
Social History
Tobacco: Non-smoker
Alcohol: Occasional (Rare use)
Drug: None
Family History
Family History: Cancer (Migrated family history of melanoma), Diabetes (Father: Prediabetes) and Hypertension (Father)
Allergies / Home Medications
Allergies
Allergy/AdvReac Type Severity Reaction Status Date / Time
No Known Allergies Allergy Verified 09/07/24 19:55
Home Medications
�Medication �Instructions �Recorded �Confirmed �Last Taken �Type
Labetalol 100 mg PO BID 01/07/10 09/07/24 09/07/24 History
amlodipine 10 mg tablet 10 mg PO DAILY 09/07/24 09/07/24 Unknown History
losartan 100 mg tablet 100 mg PO DAILY 09/07/24 09/07/24 Unknown History
metoprolol succinate 100 mg 100 mg PO DAILY 09/07/24 09/07/24 Unknown History
tablet,extended release 24 hr
norethindrone acetate 5 mg tablet 5 mg PO DAILY 09/07/24 09/07/24 Unknown History
rosuvastatin 5 mg tablet 5 mg PO DAILY 09/07/24 09/07/24 Unknown History
Review of Systems
-
History Source: Patient
All other systems: Negative unless noted
Vitals / Labs / Diagnostic Testing
Vital Signs
Temp Pulse Resp BP Pulse Ox
97.9 F 78 18 151/78 96
09/08/24 07:40 09/08/24 07:41 09/08/24 07:00 09/08/24 07:41 09/08/24 07:00
Lab Data
09/07/24 20:32
09/08/24 05:09
Laboratory Results
09/07/24
20:49
PT 12.6
INR 0.90
APTT 31.6
Diagnostic Testing:
Physical Exam
-
HEENT: Normocephalic, Anicteric and Moist Mucous Membranes
Cardiovascular: S1/S2 and Peripheral Edema (negative)
Respiratory: Wheeze (negative), Rales (negative), Rhonchi (negative) and Non-Labored Respirations
GI: Soft, Non Distended, Non Tender and Normal Bowel Sounds
Neurology: AO x 3, Tremors (negative), Other (Normal sensation to light touch in all 4 extremities, normal hydrate thickener operator strength bilaterally and normal lower extremity flexion bilaterally) and Other (Cranial nerves II-XII are intact with normal smile,
normal tongue protrusion with lateral movement, able to keep eyes closed against resistance, normal H test, normal shoulder shrug, normal sensation to light touch on her face)
Skin: Warm and Dry
General: Respiratory Distress (negative), Comfortable, Fever (negative) and Chills (negative)
Assessment
-
Assessment: 48-year-old female non-smoker with a past medical history of melanoma s/p excision, iron deficiency anemia, dysfunctional uterine bleeding currently on norethindrone, and hypertension who presents with slurred speech and being off
balance since approximately 7 PM on 09/07/2024. She says she felt a bright light in her left eye and in the ER she had tingling in her right second and third fingers. She knew what she wanted to say but she was not able to express herself. She
denied any focal weakness, dizziness or syncope. In the ER she was afebrile to 97.8 �F, pulse rate 87, breathing at 18 breaths/minute, BP 234/137 and saturating 100% on room air. Initial labs showed Hb 14.6, WBC 8.4, potassium 3.3, ALT 40, and
beta-hCG negative. CT head showed no acute intracranial abnormality. CTA head/neck showed patent cervical carotid and vertebral arteries without occlusion, stenosis or dissection. No sitka of [place]el aneurysm or stenosis. CXR showed no acute
cardiopulmonary process. She was given 1 mg Ativan, 10 mg labetalol and 6 mg Tylenol. Due to continued hypertension with SBP in the , she was started on Cardene drip and admitted to the ICU for further care. Inspector Plumbing services consulted
for additional management/recommendations.
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
Impression:
#Hypertensive crisis requiring Cardene drip
#Left-sided headache with expressive aphasia due to above with suspected TIA/acute CVA
#Transaminitis with elevated ALT (40 on admission)
#Hypercholesterolemia
#History of melanoma s/p excision
#Dysfunctional uterine bleeding currently on norethindrone
#Iron deficiency anemia
Plan:
- Patient was admitted to the ICU for hypertensive crisis, and is now off the Cardene drip with BP markedly improved
- Because her SBP was in the , we should not reduce her SBP by more than 25% in the first 24 hours
- Goal SBP today will be 150-170mmHg; can up-titrate/adjust her PO antihypertensives later today as needed to get better BP control after she has been here for 24 hours
- Continue with neurochecks with NIHSS q shift
- Continue with permissive HTN for now given her neurological status and an ischemic CVA has not been ruled out yet
- Neurology consulted and recs appreciated
- Bedside nursing evaluation to assure patient can swallow pills
- KIER OPERATOR evaluation before starting PO diet
- PT/OT
- Brain MRI is pending for today
- If there is any sudden change in neurological status then immediately notify neurologist, hospitalist and caul fat puller with stat CT head
- Continue high intensity statin with goal LDL <70
- Maintain SpO2 >92-94%
- Maintain MAP>65
- Replete electrolytes with K>4, Mg>2
- Maintain euglycemia with goal BG 140-180
- Trend H/H and transfuse if needed to keep Hb>7g/dL; keep plt>20k, unless there is concern for bleeding then keep plt>50k
- prn nebulized bronchodilators - not currently bronchospastic
- Incentive spirometer encouraged 10x per hour for at least 4 hrs a day
- DVT ppx SCDs for now given that she has a history of bleeding fibroids; she does follow with gynecology at the [facility]; consider consult while she is inpatient
Total time spent today was 77 minutes for this encounter. Time includes reviewing laboratory test/imaging results, reviewing pertinent medical records, obtaining and reviewing medical history, performing an appropriate exam, ordering medications,
tests and procedures. Time also includes documentation of this encounter, coordinating patient care and communicating with other healthcare professionals. Total time does not include separately billed tests performed on this date of service.
Data:
CT Head 09/07/2024: No acute intracranial abnormality noted.
--- NOTE | 2024-09-08 09:13 | W.PN.HOSP.TC ---
Today's Communication/Plan
-
Stable for telemetry
Assessment / Plan
Assessment / Plan
HPI: 48-year-old with past medical history for hypertension, noncompliance with hypertensive medications presented to us with left-sided headache and expressive aphasia while she was in the kitchen. She felt some bright light in her left eye. Some
tingling in ER right second and third fingers. Patient was not able to express herself. denied any focal weakness. Patient denied any dizzy or syncope. Patient denied any fever, chills, congestion, cough. Patient denied chest pain or short of
breath. Patient denied abdominal pain, nausea, vomiting, diarrhea. Patient denied dysuria hematuria.
#Expressive aphasia
#Hypertensive emergency
Head and neck CTA negative for stenosis
Brain MRI negative for acute CVA
Blood pressure much improved status post Cardene drip
Appreciate football scout and neurologist input
Continue losartan 100 mg daily, labetalol 200 mg 3 times a day
Plan to resume amlodipine 09/09
Neurology recommends aspirin 81 mg daily
A1C 4.7
Stable for transfer to telemetry
#Hyperlipidemia
LDL 142
Started on atorvastatin 40 mg every afternoon
#Obesity due to excess calories
Patient is lost 70 pounds
Encouraged continuing weight loss
DVT prophylaxis�SCDs
Full code
Total time spent to see the patient on the floor, examine the patient, review data and lab results, discuss treatment plan with patient, nursing staff around 45 minutes.
Physical Exam
General: Obese, no acute distress
HEENT: Normocephalic, Atraumatic, EOMI, MMM
Respiratory: Clear to Auscultation bilaterally
Cardiac: Normal S1/S2, Regular Rate and Rhythm
GI: Soft, Nontender, Nondistended, Normal Bowel Sounds
Extremities: No Clubbing, Cyanosis, or Edema
Neuro: Nonfocal/Grossly Intact
Psych: Calm, Cooperative
Derm: No Visible lesions
Anticipated Discharge: 24 - 48 hours
Subjective/Interval History
-
Date of Service: September 08, 2024
Expressive aphasia mostly resolved. She has been off the Cardene drip as of 2 AM. No chest pain, no shortness of breath. No dysphagia. No nausea, no vomiting. No fever.
Objective Data
-
Labs:
Laboratory Results
09/08/24
05:09
Sodium 137
Potassium 4.1
Chloride 103
Carbon Dioxide 21 L
BUN 11
Creatinine 0.8
Glucose 120 H
Calcium 9.0
Vital Signs:
Vital Signs
Temp Pulse Resp BP Pulse Ox
97.9 F 78 18 151/78 96
09/08/24 07:40 09/08/24 07:41 09/08/24 07:00 09/08/24 07:41 09/08/24 07:00
I&O
09/07/24 09/08/24 09/09/24
06:59 06:59 06:59
Intake Total 12.5 / 12.5
Output Total 350 / 350
Balance -337.5 / -337.5
--- NOTE | 2024-09-08 10:46 | PTOTSP ---
SPEECH THERAPY SWALLOW/SPEECH/LANGUAGE/COGNITIVE COMMUNICATION EVALUATION:
Patient exhibits grossly functional oropharyngeal swallow at this time. No history of dysphagia noted. Recommend continue Regular texture solids, thin liquids. Medications whole with liquid as best tolerated. General aspiration precautions. Skilled
ST services for swallow therapy are not indicated at this time.
Patient exhibits grossly functional speech and receptive language skills. Mild expressive language impairments (mild anomia during conversation only) and mild cognitive communication impairments (STM deficits) noted. Pt reported significant
improvement from yesterday, though reported she remains below baseline level of functioning. Recommend ST to follow pending MRI results; Should MRI indicate acute intracranial abnormality, recommend further assessment of expressive language and
cognitive communication skills. If MRI negative, no skilled ST services appear indicated.
RECOMMEND:
1) Regular texture diet, thin liquids
2) Medications whole with liquid as best tolerated
3) General aspiration precautions
4) ST to follow for expressive language/cognitive communication therapy pending MRI results; No swallow therapy is indicated at this time
[2024-09-08] MEDS: NON-FORMULARY ITEM 1 UNIT PO ×2 (12:17→20:14)
--- NOTE | 2024-09-08 12:38 | PTCARENOTE ---
reassessed. no changes. to MRI with volunteer on stretcher
--- NOTE | 2024-09-08 13:20 | CM ---
Addendum entered by Eugene Sykes 09/08/24 13:47:
PCP: [facility]
Pharmacy: [facility]
Original Note:
CM following re: discharge planning.
Discussed in rounds, reviewed pt's chart, met with pt. pt's daughter and her fiance at bedside.
Pt is a 47 year old female, admitted with primary dx of TIA/CVA. Brain MRI today.
Pt reports she lives with and 3 children in a 2SH townhouse. 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
PT and OT evaluations noted - outpatient PT/OT recommended. Pt is aware, expressed her agreement and she stated she lives 1 minute from and she will come to outpatient therapy
Please provide as script for outpatient PT/OT.
D/C parker: home with outpatient PT/OT and family support. Family to transport at discharge.
CM will follow with discharge plan updates as hospitalization progresses
[2024-09-08 15:07] LABS: Glycohemoglobin (HgbA1c) 4.7 % (4.0-5.6)
--- NOTE | 2024-09-08 15:20 | PTCARENOTE ---
returned from MRI, tolerating lunch. no changes in assessments. tele level of care
[2024-09-08 15:26] LABS: Erythrocyte Sed Rate 7 mm/hour (0-20)
--- NOTE | 2024-09-08 15:40 | PN.CDI ---
CDI
- -
CDI:
Physician Documentation Request
Admit Date: 09/07/24 22:12
Dear Doctor Do,
Patient admitted with headache and aphasia.
09/07 Potassium level: 3.3
09/07 Potassium chloride 40 meq PO administered
09/08 Potassium chloride 20 meq IV administered
Based on the above, could you clarify in the progress notes, the appropriate diagnosis, if significant, that supports the above abnormalities and additional evaluation, monitoring and/or treatment rendered:
Hypokalemia
Abnormal lab value insignificant
Other
Use of terms such as suspected, likely, concern for, or probable (associated with a specific diagnosis that is being evaluated, monitored, or treated as if it exists) are acceptable and can be coded in the inpatient setting, when documented at the
time of discharge.
Thank you,
Samanta Ferrer RN, BSN
CDI Specialist
Available via [place] text
Please use your independent medical judgment in providing your response.
[2024-09-08 16:28] LABS: TSH Reflex To Free T4 1.15 uIU/ml (0.47-4.68)
[2024-09-08 16:29] LABS: Vitamin B12 455 pg/ml (239-931)
--- NOTE | 2024-09-08 17:15 | PTCARENOTE ---
agitated saline contrast echocardiography completed per protocol under direction echosonographer. pt tolerated well. injections x 2 performed. IV site 20 P LAC patent, flushed after use.
[2024-09-08] MEDS: LIPITOR 40 MG PO (17:25)
--- NOTE | 2024-09-08 18:35 | PTCARENOTE ---
[facility] transfer [facility]. handoff [facility] 0
--- NOTE | 2024-09-08 20:06 | PTCARENOTE ---
pt was received from icu in a wheelchair - alert, oriented and verbally responsive. pt can make her needs known and understands when being spoken too. pt did not have any behavioral or verbal indicators of discomfort. nih = 0. pt is sitting with her
family at this time
[2024-09-09] VITALS (11 sets, daily range): BP systolic 124–214; BP diastolic 80–140
[2024-09-09] MEDS: TRANDATE 200 MG PO ×3 (08:39→21:24)
[2024-09-09] MEDS: LOW STRENGTH ASPIRIN 81 MG PO (08:39)
[2024-09-09] MEDS: COZAAR 100 MG PO (08:39)
[2024-09-09] MEDS: NON-FORMULARY ITEM 1 UNIT PO ×2 (08:40→19:52)
--- NOTE | 2024-09-09 09:07 | W.PN.HOSP.TC ---
Today's Communication/Plan
-
see bold
Assessment / Plan
Assessment / Plan
HPI: 48-year-old with past medical history for hypertension, noncompliance with hypertensive medications presented to us with left-sided headache and expressive aphasia while she was in the kitchen. She felt some bright light in her left eye. Some
tingling in ER right second and third fingers. Patient was not able to express herself. denied any focal weakness. Patient denied any dizzy or syncope. Patient denied any fever, chills, congestion, cough. Patient denied chest pain or short of
breath. Patient denied abdominal pain, nausea, vomiting, diarrhea. Patient denied dysuria hematuria.
#Expressive aphasia
#Hypertensive emergency
#Resistant hypertension
Head and neck CTA negative for stenosis
Brain MRI negative for acute CVA
Blood pressure much improved status post Cardene drip
Appreciate data collection associate and neurologist input
Continue losartan 100 mg daily, labetalol increased to 200 mg 3 times a day
Resumed amlodipine 5 mg twice a day 09/09
Add clonidine 0.1 3 times daily, hydralazine 100 mg 3 times daily 09/09
Check renal artery ultrasound to assess for stenosis, renin/aldosterone ratio for hyperaldosteronism
Neurology recommends aspirin 81 mg daily. T-spine/C-spine MRI negative.
Neurology recommends outpatient lumbar puncture versus lumbar puncture on Wednesday
A1C 4.7
#Hyperlipidemia
LDL 142
Started on atorvastatin 40 mg every afternoon
#Hypokalemia
Repleted and resolved
#Obesity due to excess calories
Patient has lost 70 pounds
Encouraged continued weight loss
DVT prophylaxis�SCDs
Full code
Total time spent to see the patient on the floor, examine the patient, review data and lab results, discuss treatment plan with patient, nursing staff around 51 minutes.
Physical Exam
General: Obese, no acute distress
HEENT: Normocephalic, Atraumatic, EOMI, MMM
Respiratory: Clear to Auscultation bilaterally
Cardiac: Normal S1/S2, Regular Rate and Rhythm
GI: Soft, Nontender, Nondistended, Normal Bowel Sounds
Extremities: No Clubbing, Cyanosis, or Edema
Neuro: Nonfocal/Grossly Intact
Psych: Calm, Cooperative
Derm: No Visible lesions
Anticipated Discharge: 24 - 48 hours
Subjective/Interval History
-
Date of Service: September 08, 2024
Objective Data
-
Labs:
Laboratory Results
09/08/24
05:09
Sodium 137
Potassium 4.1
Chloride 103
Carbon Dioxide 21 L
BUN 11
Creatinine 0.8
Glucose 120 H
Calcium 9.0
Vital Signs:
Vital Signs
Temp Pulse Resp BP Pulse Ox
98.4 F 68 19 173/78 98
09/08/24 15:40 09/08/24 15:35 09/08/24 15:00 09/08/24 15:35 09/08/24 15:40
I&O
09/07/24 09/08/24 09/09/24
06:59 06:59 06:59
Intake Total 12.5 / 12.5 600 / 600
Output Total 350 / 350
Balance -337.5 / -337.5 600 / 600
--- NOTE | 2024-09-09 09:16 | W.PN.NEURO.1 ---
Today's Communication / Plan
-
24 hours after accelerated hypertension, may have goal of normotension
Due to extensive abnormalities in MRI of brain including pontine lesions and lesions involving the corpus callosum, would image cervical and thoracic spines with and without contrast to evaluate for possible enhancing lesions which would
potentially change the diagnosis from small vessel ischemic disease to demyelinating lesions
Based on absence of acute ischemic lesions, may continue aspirin 81 mg daily in addition to clopidogrel 75 mg daily for total of 21 days
Replaced low-dose rosuvastatin that the patient was utilizing prior to hospitalization with atorvastatin 40 mg daily as the patient was reluctant as an outpatient to utilize a statin medication despite elevated LDL
Consider lumbar puncture based on absence of changes in the spinal cord to evaluate for possible mimics of multiple sclerosis
Check and await blood work for potential metabolic abnormalities producing symptomatology
Neuro Assessment/Plan
Assessment
MRI imaging results above with and without contrast
CT head wo contrast�no acute abnormalities
CTA head/neck�no evidence of hemodynamically significant stenosis, dissection, thrombosis or aneurysms. Assessment
I. Sudden onset receptive then expressive aphasia with associated headache and recent initiation of control. Differential diagnosis includes vascular versus migraine aura.
II. Accelerated hypertension
Abnormal MRI of brain including pontine and corpus callosal lesions
III. Dyslipidemia
Plan
24 hours after accelerated hypertension, may have goal of normotension
Due to extensive abnormalities in MRI of brain including pontine lesions and lesions involving the corpus callosum, would image cervical and thoracic spines with and without contrast to evaluate for possible enhancing lesions which would
potentially change the diagnosis from small vessel ischemic disease to demyelinating lesions
Based on absence of acute ischemic lesions, may continue aspirin 81 mg daily in addition to clopidogrel 75 mg daily for total of 21 days
Replaced low-dose rosuvastatin that the patient was utilizing prior to hospitalization with atorvastatin 40 mg daily as the patient was reluctant as an outpatient to utilize a statin medication despite elevated LDL
Consider lumbar puncture based on absence of changes in the spinal cord to evaluate for possible mimics of multiple sclerosis
Check and await blood work for potential metabolic abnormalities producing symptomatology
Will follow pending results
Subjective/Objective
Subjective Data
Date of Service: September 09, 2024
No current aphasia. No other symptoms currently
Objective Data
Vital Signs
Temp Pulse Resp BP Pulse Ox
36.8 C 59 19 180/94 98
09/09/24 03:00 09/09/24 08:39 09/09/24 03:00 09/09/24 08:39 09/09/24 03:00
Lab Results
09/07/24 20:32
09/08/24 05:09
PT 12.6 Sec (11.4-14.6) 09/07/24 20:49
INR 0.90 09/07/24 20:49
APTT 31.6 Sec (23.4-35.0) 09/07/24 20:49
Sodium 137 mmol/L (135-145) 09/08/24 05:09
Potassium 4.1 mmol/L (3.5-5.1) 09/08/24 05:09
BUN 11 mg/dl (7-17) 09/08/24 05:09
Glucose 120 mg/dl (70-99) H 09/08/24 05:09
Calcium 9.0 mg/dl (8.4-10.2) 09/08/24 05:09
LDL Cholesterol, Calc 142 mg/dl 09/08/24 05:09
Vitamin B12 455 pg/ml (239-931) 09/08/24 14:56
Patient Allergies
No Known Allergies Allergy (Verified 09/07/24 19:55)
Review of Systems
-
History Source: Patient
All other systems: Reviewed and negative
EENT: Negative Swallowing Difficulty
Respiratory: Negative Trouble Breathing
Cardiac: Negative Chest Pain
Abdomen/GI: Negative Incontinence of Stool
Genitourinary: Negative Incontinence
Musculoskeletal: Negative Back Pain or Neck Pain
Neuro: Negative Dizzy or Headache
Physical Exam
-
General: No Apparent Distress and Appears Stated Age
Eyes: Round OU, Klein Conjunctivae and No Ptosis
HEENT: Anicteric and Moist Mucous Membranes
Neck: Full Range of Motion
Respiratory: No Dyspnea
Cardiac: No JVD
GI: Non-distended
Skin: Unremarkable
Extremities: No Clubbing, No Cyanosis and No Edema
Psych: Intact Judgement/Insight
Extended Neurological Exam
Mood & Affect: Mood Unremarkable and Affect Unremarkable
Attention Span & Concentration: Awake, Alert and Interactive
Memory: Unremarkable
Tremor: Hand Tremor Absent and Head Tremor Absent
Speech: Quality Unremarkable and Quantity Unremarkable
Cranial Nerve II: Left Eye: Pupillary Size Unremarkable and Visual Holloway Grossly Intact
Cranial Nerve II: Right Eye: Pupillary Size Unremarkable and Visual Holloway Grossly Intact
Cranial Nerves III, IV, : Extraocular Movement: Grossly Intact
Cranial Nerve VII: Facial Symmetry: Normal Facial Symmetry
Cranial Nerve VIII: Hearing: Unremarkable Hearing to Normal Conversational Volume
Cranial Nerve XI: Shoulder Shrug: Unremarkable
Muscle Strength, Overall: Spontaneously Moves (All extremities)
Muscle Bulk & Tone: Bulk Unremarkable and Tone Unremarkable
Touch Sensation: Unremarkable
Coordination: Reaches for Objects without Difficulty
Data Reviewed
-
CT Head: Report Reviewed
MRI Head: Report Reviewed and Image Reviewed
Echocardiogram: Report Reviewed
Labs: Report Reviewed
Lipid Profile: Report Reviewed
Reviewed with: Physician, Nurse and Patient
Old Records: Summarized
Past History
Past History
ED Past Medical History: Cancer (Melanoma on right thigh with 4 resections), HTN, Hypercholesterolemia, Other (Noncompliance with medical therapy, accelerated hypertension August 2024) and Other (Benign PVCs )
ED Past Surgical History: and Other (Thigh melanoma resection x 4, reduction mammoplasty)
Social History
Tobacco: Non-smoker
Alcohol: None
Personal:
Living: with family
Family History
Family History: Other (Colon cancer and lung cancer )
Medications
-
Medications:
Generic Name Dose Route Start Last Admin
Trade Name Freq PRN Reason Stop Dose Admin
Acetaminophen 650 mg 09/07/24 22:55
Acetaminophen 650 Mg Rectal Suppository RECTAL 10/05/24 22:54
Q4HPRN PRN
FRANCOIS, mild pain, or temp >100.4F
Acetaminophen 650 mg 09/08/24 07:56
Acetaminophen 325 Mg Tablet PO 10/05/24 21:41
Q4HPRN PRN
FRANCOIS, mild pain, or temp >100.4F
Amlodipine Besylate 5 mg 09/09/24 10:00
Amlodipine 5 Mg Tablet PO 10/07/24 09:59
BID BERNICE
Aspirin 81 mg 09/08/24 08:00 09/09/24 08:39
Aspirin 81 Mg Chewable Tablet PO 10/06/24 07:59 81 mg
DAILY BERNICE Administration
Atorvastatin Calcium 40 mg 09/08/24 18:00 09/08/24 17:25
Atorvastatin (Lipitor) 20 Mg Tablet PO 10/06/24 17:59 40 mg
QPM BERNICE Administration
Labetalol HCl 200 mg 09/07/24 22:55 09/09/24 08:39
Labetalol 200 Mg Tablet PO 10/05/24 22:54 200 mg
TID BERNICE Administration
Losartan Potassium 100 mg 09/08/24 08:00 09/09/24 08:39
Losartan 100 Mg Tablet PO 10/06/24 07:59 100 mg
DAILY BERNICE Administration
Norethindrone 5mg Po 0 unit 09/08/24 12:00 09/09/24 08:40
Q12h PO 10/06/24 11:59 1 unit
Q12 BERNICE Administration
Ondansetron HCl 4 mg 09/07/24 22:59 09/08/24 05:00
Ondansetron 4 Mg/2 Ml Vial IV 10/05/24 22:58 4 mg
Q6HPRN PRN Administration
NAUSEA/VOMITING
Sodium Chloride 0 flush 09/07/24 23:00
Sodium Chloride 0.9% (Flush) Syringe IV 10/05/24 22:59
PER PROTOCOL BERNICE
[2024-09-09] MEDS: NORVASC 5 MG PO ×2 (10:29→19:53)
[2024-09-09] MEDS: APRESOLINE 100 MG PO ×2 (14:59→21:26)
[2024-09-09] MEDS: CATAPRES 0.1 MG PO ×2 (14:59→21:26)
[2024-09-09 17:07] LABS: Ferritin 9.7 ng/ml (6.24-137)
[2024-09-09 17:22] LABS: Vitamin D, 25-OH*** 26.3 ng/mL (30-80)
--- NOTE | 2024-09-09 17:58 | PTCARENOTE ---
Assumed care of pt from previous nurse. Pt denies pain. pt is on tele running nsr. Pt neuro checks remain unchanged, NIH 0. Pt call garcia is within reach, pt rings allyn. will cont to monitor.
[2024-09-09] MEDS: LIPITOR 40 MG PO (18:10)
[2024-09-09] MEDS: ALDACTONE 25 MG PO (21:25)
[2024-09-09] MEDS: ZOFRAN 4 MG IV (22:21)
[2024-09-09] MEDS: COMPAZINE 5 MG IV (23:04)
[2024-09-09] MEDS: TYLENOL 650 MG PO (23:04)
[2024-09-10] VITALS (8 sets, daily range): BP systolic 130–172; BP diastolic 59–89
--- NOTE | 2024-09-10 08:41 | W.PN.HOSP.TC ---
Today's Communication/Plan
-
see bold
Assessment / Plan
Assessment / Plan
HPI: 48-year-old with past medical history for hypertension, noncompliance with hypertensive medications presented to us with left-sided headache and expressive aphasia while she was in the kitchen. She felt some bright light in her left eye. Some
tingling in ER right second and third fingers. Patient was not able to express herself. denied any focal weakness. Patient denied any dizzy or syncope. Patient denied any fever, chills, congestion, cough. Patient denied chest pain or short of
breath. Patient denied abdominal pain, nausea, vomiting, diarrhea. Patient denied dysuria hematuria.
#Expressive aphasia
#Hypertensive emergency
#Resistant hypertension
Head and neck CTA negative for stenosis. Brain MRI negative for acute CVA
Blood pressure much improved status post Cardene drip. Appreciate civil engineering designer and neurologist input
Patient's blood pressure responded well to adding Aldactone 25 mg at bedtime 09/09, highly suspicious for hyperaldosteronism (she was only mildly hypokalemic 3.3 upon admission though)
Follow-up aldosterone/renin ratio, renal artery ultrasound
Continue Aldactone 25 mg at bedtime, losartan 100 mg daily, discontinue labetalol
Change amlodipine to nifedipine 60 mg twice daily. Continue IV hydralazine as needed
Neurology recommends aspirin 81 mg daily. T-spine/C-spine MRI negative.
Neurology recommends outpatient lumbar puncture versus lumbar puncture on Wednesday
A1C 4.7
#Headaches suspicious for migraine
Maxalt as per neurology, Compazine IV as needed
#Hyperlipidemia
LDL 142
Started on atorvastatin 40 mg every afternoon
#Hypokalemia
Repleted and resolved
#Obesity due to excess calories
Patient has lost 70 pounds
Encouraged continued weight loss
DVT prophylaxis�SCDs
Full code
Total time spent to see the patient on the floor, examine the patient, review data and lab results, discuss treatment plan with patient, nursing staff around 50 minutes.
Physical Exam
General: Obese, no acute distress
HEENT: Normocephalic, Atraumatic, EOMI, MMM
Respiratory: Clear to Auscultation bilaterally
Cardiac: Normal S1/S2, Regular Rate and Rhythm
GI: Soft, Nontender, Nondistended, Normal Bowel Sounds
Extremities: No Clubbing, Cyanosis, or Edema
Neuro: Nonfocal/Grossly Intact
Psych: Calm, Cooperative
Derm: No Visible lesions
Anticipated Discharge: Within 24 hours
Subjective/Interval History
-
Date of Service: September 10, 2024
Patient complains of a right-sided headache, 5 out of 10 in intensity. No nausea, no vomiting, no photophobia. No fever.
Objective Data
-
Vital Signs:
Vital Signs
Temp Pulse Resp BP Pulse Ox
98.1 F 71 16 150/86 97
09/10/24 07:20 09/10/24 07:20 09/10/24 07:20 09/10/24 07:20 09/10/24 07:20
I&O
09/09/24 09/10/24 09/11/24
06:59 06:59 06:59
Intake Total 1800 / 1800 1909
Balance 1800 / 1800 1909
[2024-09-10] MEDS: COZAAR 100 MG PO (08:44)
[2024-09-10] MEDS: NORVASC 5 MG PO (08:46)
[2024-09-10] MEDS: LOW STRENGTH ASPIRIN 81 MG PO (08:46)
[2024-09-10] MEDS: NON-FORMULARY ITEM 1 UNIT PO ×2 (08:47→20:11)
[2024-09-10] MEDS: APRESOLINE PO (08:50)
[2024-09-10] MEDS: CATAPRES PO (08:51)
[2024-09-10] MEDS: TRANDATE PO (08:51)
--- NOTE | 2024-09-10 08:51 | W.PN.NEURO.1 ---
Today's Communication / Plan
-
Rizatriptan PRN if SBP< 150, DBP < 100
Based on absence of acute ischemic lesions, may continue aspirin 81 mg daily
Neuro Assessment/Plan
Assessment
MRI imaging results above with and without contrast
CT head wo contrast�no acute abnormalities
CTA head/neck�no evidence of hemodynamically significant stenosis, dissection, thrombosis or aneurysms. Assessment
Sudden onset receptive then expressive aphasia with associated headache and recent initiation of control while experiencing accelerated hypertension.
Differential diagnosis includes hypertensive encephalopathy, migraine with aura.
Additionally abnormal MRI of brain including pontine and corpus callosal lesions, potentially suggestive of multiple sclerosis (radiographically isolated syndrome); MRI cervical and thoracic spines unremarkable with and without contrast
Plan
goal of normotension
Rizatriptan PRN if SBP< 150, DBP < 100
Based on absence of acute ischemic lesions, may continue aspirin 81 mg daily
Replaced low-dose rosuvastatin that the patient was utilizing prior to hospitalization with atorvastatin 40 mg daily as the patient was reluctant as an outpatient to utilize a statin medication despite elevated LDL
Consider lumbar puncture based on absence of changes in the spinal cord to evaluate for possible mimics of multiple sclerosis
Check and await blood work for potential metabolic abnormalities producing symptomatology
Will follow
Subjective/Objective
Subjective Data
Date of Service: September 10, 2024
Headache with aura. No other new symptoms
Objective Data
Vital Signs
Temp Pulse Resp BP Pulse Ox
36.7 C 73 16 148/78 97
09/10/24 07:20 09/10/24 08:46 09/10/24 07:20 09/10/24 08:46 09/10/24 07:20
Lab Results
09/07/24 20:32
09/08/24 05:09
PT 12.6 Sec (11.4-14.6) 09/07/24 20:49
INR 0.90 09/07/24 20:49
APTT 31.6 Sec (23.4-35.0) 09/07/24 20:49
Sodium 137 mmol/L (135-145) 09/08/24 05:09
Potassium 4.1 mmol/L (3.5-5.1) 09/08/24 05:09
BUN 11 mg/dl (7-17) 09/08/24 05:09
Glucose 120 mg/dl (70-99) H 09/08/24 05:09
Calcium 9.0 mg/dl (8.4-10.2) 09/08/24 05:09
LDL Cholesterol, Calc 142 mg/dl 09/08/24 05:09
Vitamin B12 455 pg/ml (239-931) 09/08/24 14:56
Patient Allergies
No Known Allergies Allergy (Verified 09/07/24 19:55)
Review of Systems
-
History Source: Patient
All other systems: Reviewed and negative
Abdomen/GI: Negative Incontinence of Stool
Genitourinary: Negative Incontinence
Musculoskeletal: Negative Back Pain or Neck Pain
Neuro: Dizzy and Headache; Negative Speech Problem
Physical Exam
-
General: No Apparent Distress and Appears Stated Age
Eyes: Round OU, [place] Conjunctivae and No Ptosis
HEENT: Anicteric and Moist Mucous Membranes
Neck: Full Range of Motion
Respiratory: No Dyspnea
Cardiac: No JVD
GI: Non-distended
Skin: Unremarkable
Extremities: No Clubbing, No Cyanosis and No Edema
Psych: Intact Judgement/Insight
Extended Neurological Exam
Mood & Affect: Mood Unremarkable and Affect Unremarkable
Attention Span & Concentration: Awake, Alert and Interactive
Memory: Unremarkable
Tremor: Hand Tremor Absent and Head Tremor Absent
Speech: Quality Unremarkable and Quantity Unremarkable
Cranial Nerve II: Left Eye: Pupillary Size Unremarkable and Visual [place] Grossly Intact
Cranial Nerve II: Right Eye: Pupillary Size Unremarkable and Visual [place] Grossly Intact
Cranial Nerves III, IV, : Extraocular Movement: Grossly Intact
Cranial Nerve VII: Facial Symmetry: Normal Facial Symmetry
Cranial Nerve VIII: Hearing: Unremarkable Hearing to Normal Conversational Volume
Cranial Nerve XI: Shoulder Shrug: Unremarkable
Muscle Strength, Overall: Spontaneously Moves (All extremities)
Muscle Bulk & Tone: Bulk Unremarkable and Tone Unremarkable
Touch Sensation: Unremarkable
Coordination: Reaches for Objects without Difficulty
Gait & Station: Up from Seated Without Problem
Data Reviewed
-
MRI Cervical Spine: Report Reviewed
MRI Thoracic Spine: Report Reviewed
Labs: Pending and Report Reviewed
Reviewed with: Physician, Patient and Family
Old Records: Summarized
Past History
Past History
ED Past Medical History: Arrthythmia (Benign PVCs ), Cancer (Melanoma on right thigh with 4 resections), HTN, Hypercholesterolemia, Other (Noncompliance with medical therapy, accelerated hypertension August 2024, abnl MRI of brain, migraine with
aura) and Other
ED Past Surgical History: and Other (Thigh melanoma resection x 4, reduction mammoplasty)
Social History
Tobacco: Non-smoker
Alcohol: None
Personal:
Living: with family
Family History
Family History: Other (Colon cancer and lung cancer )
Medications
-
Medications:
Generic Name Dose Route Start Last Admin
Trade Name Freq PRN Reason Stop Dose Admin
Acetaminophen 650 mg 09/07/24 22:55
Acetaminophen 650 Mg Rectal Suppository RECTAL 10/05/24 22:54
Q4HPRN PRN
FRANCOIS, mild pain, or temp >100.4F
Acetaminophen 650 mg 09/08/24 07:56 09/09/24 23:04
Acetaminophen 325 Mg Tablet PO 10/05/24 21:41 650 mg
Q4HPRN PRN Administration
FRANCOIS, mild pain, or temp >100.4F
Amlodipine Besylate 5 mg 09/09/24 10:00 09/10/24 08:46
Amlodipine 5 Mg Tablet PO 10/07/24 09:59 5 mg
BID BERNICE Administration
Aspirin 81 mg 09/08/24 08:00 09/10/24 08:46
Aspirin 81 Mg Chewable Tablet PO 10/06/24 07:59 81 mg
DAILY BERNICE Administration
Atorvastatin Calcium 40 mg 09/08/24 18:00 09/09/24 18:10
Atorvastatin (Lipitor) 20 Mg Tablet PO 10/06/24 17:59 40 mg
QPM BERNICE Administration
Hydralazine HCl 10 mg 09/09/24 14:51
Hydralazine 20 Mg/Ml Vial IV 10/07/24 14:50
Q4HPRN PRN
SBP > 160 mmHg
Labetalol HCl 100 mg 09/10/24 09:00
Labetalol 100 Mg Tablet PO 10/08/24 08:59
BID BERNICE
Losartan Potassium 100 mg 09/08/24 08:00 09/10/24 08:44
Losartan 100 Mg Tablet PO 10/06/24 07:59 100 mg
DAILY BERNICE Administration
Norethindrone 5mg Po 0 unit 09/08/24 12:00 09/10/24 08:47
Q12h PO 10/06/24 11:59 1 unit
Q12 BERNICE Administration
Ondansetron HCl 4 mg 09/07/24 22:59 09/09/24 22:21
Ondansetron 4 Mg/2 Ml Vial IV 10/05/24 22:58 4 mg
Q6HPRN PRN Administration
NAUSEA/VOMITING
Sodium Chloride 0 flush 09/07/24 23:00
Sodium Chloride 0.9% (Flush) Syringe IV 10/05/24 22:59
PER PROTOCOL BERNICE
Spironolactone 25 mg 09/09/24 22:00 09/09/24 21:25
Spironolactone 25 Mg Tablet PO 10/07/24 21:59 25 mg
HS BERNICE Administration
[2024-09-10] MEDS: TRANDATE 100 MG PO (08:56)
[2024-09-10] MEDS: MAXALT MLT (ORALLY DISINTEGRATING) 10 MG PO ×2 (09:32→11:34)
--- NOTE | 2024-09-10 12:51 | PTCARENOTE ---
Assumed care of pt from previous nurse. TT to Dr. Starks, group text with Dr. Grimes regarding blood pressure medications and pt's concern for repeat episode from last night when pt blood pressure dropped from 193/93 ti 124/80, pt began to have repeat
symptoms from admission without aphasia. Medication adjustments made and Maxalt provided. Pt feeling relief from headache. Current blood pressure manual 148/68. call garcia within reach, will cont to monitor.
--- NOTE | 2024-09-10 14:52 | PTCARENOTE ---
Assumed care of pt from previous nurse. Pt denies pain. Pt is on tele running afib. No noted chest pain during shift. Pt call garcia is within reach, pt rings allyn. will cont to monitor.
[2024-09-10] MEDS: LIPITOR 40 MG PO (17:10)
[2024-09-10] MEDS: PROCARDIA XL (EXTENDED RELEASE) 60 MG PO (20:11)
[2024-09-10] MEDS: ALDACTONE 25 MG PO (22:06)
[2024-09-11 03:10] VITALS: BP 115/67
[2024-09-11 07:00] VITALS: BP 156/89
[2024-09-11] MEDS: NON-FORMULARY ITEM 1 UNIT PO (07:35)
[2024-09-11] MEDS: COZAAR 100 MG PO (07:35)
[2024-09-11] MEDS: LOW STRENGTH ASPIRIN 81 MG PO (07:35)
[2024-09-11] MEDS: PROCARDIA XL (EXTENDED RELEASE) 60 MG PO (07:35)
[2024-09-11 07:58] LABS: Hematocrit 43.4 % (37.0-47.0); Hemoglobin 14.2 g/dL (12.0-16.0); Mean Corp Hgb Conc. 32.7 g/dL (33.0-37.0); Mean Corpuscular Hgb 27.3 pg (27.0-31.0); Mean Corpuscular Volume 83.3 fL (81.0-99.0); Mean Platelet Volume 10.7 fL (7.4-10.4); Platelet Count 269 10^3/uL (130-400); Red Blood Cell Count 5.21 10^6/uL (4.20-5.40); Red Cell Dist. Width 15.2 % (11.5-14.5)
[2024-09-11 08:37] LABS: Blood Urea Nitrogen 23 mg/dl (7-17); Calcium 9.2 mg/dl (8.4-10.2); Carbon Dioxide 22 mmol/L (22-30); Chloride 105 mmol/L (98-107); Estimated Creatinine Clearance 99 ml/min; Glucose 80 mg/dl (70-99); Magnesium 2.1 mg/dl (1.6-2.3); Potassium 4.3 mmol/L (3.5-5.1); Sodium 136 mmol/L (135-145); eGFR > 60.00
[2024-09-11 08:47] LABS: Angiotensin-1-converting Enzym 33 U/L (16-85)
--- NOTE | 2024-09-11 09:03 | W.PN.NEURO.1 ---
Today's Communication / Plan
-
goal of normotension
Rizatriptan PRN if SBP< 150, DBP < 100
Continue aspirin 81 mg daily
Continue atorvastatin 40 mg daily as the patient was reluctant as an outpatient to utilize a statin medication despite elevated LDL
Check lumbar puncture based on absence of changes in the spinal cord to evaluate for possible mimics of multiple sclerosis
Neuro Assessment/Plan
Assessment
MRI imaging results above with and without contrast
CT head wo contrast�no acute abnormalities
CTA head/neck�no evidence of hemodynamically significant stenosis, dissection, thrombosis or aneurysms. Assessment
Sudden onset receptive then expressive aphasia with associated headache and recent initiation of control while experiencing accelerated hypertension.
Differential diagnosis includes hypertensive encephalopathy, migraine with aura.
Additionally abnormal MRI of brain including pontine and corpus callosal lesions, potentially suggestive of multiple sclerosis (radiographically isolated syndrome); MRI cervical and thoracic spines unremarkable with and without contrast
Plan
goal of normotension
Rizatriptan PRN if SBP< 150, DBP < 100
Continue aspirin 81 mg daily
Continue atorvastatin 40 mg daily as the patient was reluctant as an outpatient to utilize a statin medication despite elevated LDL
Check lumbar puncture based on absence of changes in the spinal cord to evaluate for possible mimics of multiple sclerosis
Check and await blood work for potential metabolic abnormalities producing symptomatology
Will follow
Subjective/Objective
Subjective Data
Date of Service: September 11, 2024
No new events
Objective Data
Vital Signs
Temp Pulse Resp BP Pulse Ox
36.9 C 77 16 145/90 97
09/11/24 03:10 09/11/24 07:35 09/11/24 03:10 09/11/24 07:35 09/11/24 03:10
Lab Results
09/11/24 06:49
09/11/24 06:49
PT 12.6 Sec (11.4-14.6) 12/19/24 20:49
INR 0.90 09/07/24 20:49
APTT 31.6 Sec (23.4-35.0) 09/07/24 20:49
Sodium 136 mmol/L (135-145) 09/11/24 06:49
Potassium 4.3 mmol/L (3.5-5.1) 09/11/24 06:49
BUN 23 mg/dl (7-17) H 09/11/24 06:49
Glucose 80 mg/dl (70-99) 09/11/24 06:49
Calcium 9.2 mg/dl (8.4-10.2) 09/11/24 06:49
LDL Cholesterol, Calc 142 mg/dl 09/08/24 05:09
Vitamin B12 455 pg/ml (239-931) 09/08/24 14:56
Patient Allergies
No Known Allergies Allergy (Verified 09/07/24 19:55)
Review of Systems
-
History Source: Patient
All other systems: Reviewed and negative
Respiratory: Negative Trouble Breathing
Cardiac: Negative Chest Pain
Neuro: Negative Dizzy or Headache
Physical Exam
-
General: No Apparent Distress and Appears Stated Age
Eyes: Round OU, [place] Conjunctivae and No Ptosis
HEENT: Anicteric and Moist Mucous Membranes
Neck: Full Range of Motion
Respiratory: No Dyspnea
Cardiac: No JVD
GI: Non-distended
Extremities: No Clubbing, No Cyanosis and No Edema
Psych: Intact Judgement/Insight
Extended Neurological Exam
Mood & Affect: Mood Unremarkable and Affect Unremarkable
Attention Span & Concentration: Awake, Alert and Interactive
Memory: Unremarkable
Tremor: Hand Tremor Absent and Head Tremor Absent
Speech: Quality Unremarkable and Quantity Unremarkable
Cranial Nerve II: Left Eye: Pupillary Size Unremarkable and Visual [place] Grossly Intact
Cranial Nerve II: Right Eye: Pupillary Size Unremarkable and Visual [place] Grossly Intact
Cranial Nerves III, IV, : Extraocular Movement: Grossly Intact
Cranial Nerve VII: Facial Symmetry: Normal Facial Symmetry
Cranial Nerve VIII: Hearing: Unremarkable Hearing to Normal Conversational Volume
Cranial Nerve XI: Shoulder Shrug: Unremarkable
Muscle Strength, Overall: Spontaneously Moves (All extremities)
Muscle Bulk & Tone: Bulk Unremarkable and Tone Unremarkable
Coordination: Reaches for Objects without Difficulty
Data Reviewed
-
Labs: Report Reviewed
Reviewed with: Patient
Old Records: Summarized
Past History
Past History
ED Past Medical History: Arrthythmia (Benign PVCs ), Cancer (Melanoma on right thigh with 4 resections), HTN, Hypercholesterolemia and Other (Noncompliance with medical therapy, accelerated hypertension August 2024, abnl MRI of brain, migraine
with aura)
ED Past Surgical History: and Other (Thigh melanoma resection x 4, reduction mammoplasty)
Social History
Tobacco: Non-smoker
Alcohol: None
Personal:
Living: with family
Family History
Family History: Other (Colon cancer and lung cancer )
Medications
-
Medications:
Generic Name Dose Route Start Last Admin
Trade Name Freq PRN Reason Stop Dose Admin
Acetaminophen 650 mg 09/07/24 22:55
Acetaminophen 650 Mg Rectal Suppository RECTAL 10/05/24 22:54
Q4HPRN PRN
FRANCOIS, mild pain, or temp >100.4F
Acetaminophen 650 mg 09/08/24 07:56 09/09/24 23:04
Acetaminophen 325 Mg Tablet PO 10/05/24 21:41 650 mg
Q4HPRN PRN Administration
FRANCOIS, mild pain, or temp >100.4F
Aspirin 81 mg 09/08/24 08:00 09/11/24 07:35
Aspirin 81 Mg Chewable Tablet PO 10/06/24 07:59 81 mg
DAILY BERNICE Administration
Atorvastatin Calcium 40 mg 09/08/24 18:00 09/10/24 17:10
Atorvastatin (Lipitor) 20 Mg Tablet PO 10/06/24 17:59 40 mg
QPM BERNICE Administration
Hydralazine HCl 10 mg 09/09/24 14:51
Hydralazine 20 Mg/Ml Vial IV 10/07/24 14:50
Q4HPRN PRN
SBP > 160 mmHg
Losartan Potassium 100 mg 09/08/24 08:00 09/11/24 07:35
Losartan 100 Mg Tablet PO 10/06/24 07:59 100 mg
DAILY BERNICE Administration
Nifedipine 60 mg 09/10/24 20:00 09/11/24 07:35
Nifedipine 60 Mg Extended Release Tablet PO 10/08/24 19:59 60 mg
BID BERNICE Administration
Norethindrone 5mg Po 0 unit 09/08/24 12:00 09/11/24 07:35
Q12h PO 10/06/24 11:59 1 unit
Q12 BERNICE Administration
Ondansetron HCl 4 mg 09/07/24 22:59 09/09/24 22:21
Ondansetron 4 Mg/2 Ml Vial IV 10/05/24 22:58 4 mg
Q6HPRN PRN Administration
NAUSEA/VOMITING
Sodium Chloride 0 flush 09/07/24 23:00
Sodium Chloride 0.9% (Flush) Syringe IV 10/05/24 22:59
PER PROTOCOL BERNICE
Spironolactone 25 mg 09/09/24 22:00 09/10/24 22:06
Spironolactone 25 Mg Tablet PO 10/07/24 21:59 25 mg
HS BERNICE Administration
[2024-09-11 11:00] VITALS: BP 160/90
[2024-09-11] MEDS: VITAMIN D3 (cholecalciferol) 125 MCG PO (11:31)
[2024-09-11] MEDS: NSS 500 IV (11:35)
--- NOTE | 2024-09-11 12:16 | W.PN.HOSP.TC ---
Today's Communication/Plan
-
possible DC post LP
Assessment / Plan
Assessment / Plan
HPI: 48-year-old with past medical history for hypertension, noncompliance with hypertensive medications presented to us with left-sided headache and expressive aphasia while she was in the kitchen. She felt some bright light in her left eye. Some
tingling in ER right second and third fingers. Patient was not able to express herself. denied any focal weakness. Patient denied any dizzy or syncope. Patient denied any fever, chills, congestion, cough. Patient denied chest pain or short of
breath. Patient denied abdominal pain, nausea, vomiting, diarrhea. Patient denied dysuria hematuria.
Head CT
IMPRESSION:
No acute intracranial abnormality noted.
Head/Neck CTA
IMPRESSION:
The cervical carotid and vertebral arteries are patent without significant plaque, stenosis, occlusion, or dissection.
No [place] of [place] region aneurysm or stenosis.
No cerebral artery significant plaque, stenosis, thrombus, or occlusion.
Brain MRI
IMPRESSION:
1. No MRI evidence for acute infarct or intracranial hemorrhage.
2. 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
hypertension.
3. Small disc herniations at C3/C4 and C5/C6 causing mild spinal cord compression and central canal stenosis.
Cervical and Thoracic Spine MRI
IMPRESSION:
No MRI evidence for signal alteration or abnormal postcontrast enhancement of the cervicothoracic spinal cord.
Renal Artery Duplex
IMPRESSION:
No sonographic evidence for renal artery stenosis.
#Expressive aphasia
#Hypertensive emergency
#Resistant hypertension
Head and neck CTA negative for stenosis. Brain MRI negative for acute CVA
Blood pressure much improved status post Cardene drip. Appreciate water tender and neurologist input
Patient's blood pressure responded well to adding Aldactone 25 mg at bedtime 09/09, highly suspicious for hyperaldosteronism (she was only mildly hypokalemic 3.3 upon admission though)
Follow-up aldosterone/renin ratio, renal artery ultrasound without stenosis
Continue Aldactone 25 mg at bedtime, losartan 100 mg daily, discontinue labetalol
Change amlodipine to nifedipine 60 mg twice daily. Continue IV hydralazine as needed
Neurology recommends aspirin 81 mg daily. T-spine/C-spine MRI negative.
Neurology recommends outpatient lumbar puncture versus lumbar puncture on Wednesday
A1C 4.7
#Headaches suspicious for migraine
Maxalt as per neurology, Compazine IV as needed
#Hyperlipidemia
LDL 142
Started on atorvastatin 40 mg every afternoon
#Hypokalemia
Repleted and resolved
#Obesity due to excess calories
Patient has lost 70 pounds
Encouraged continued weight loss
DVT prophylaxis�SCDs
Full code
Total time spent to see the patient on the floor, examine the patient, review data and lab results, discuss treatment plan with patient, nursing staff around 50 minutes.
Physical Exam
General: Obese, no acute distress
HEENT: Normocephalic, Atraumatic, EOMI, MMM
Respiratory: Clear to Auscultation bilaterally
Cardiac: Normal S1/S2, Regular Rate and Rhythm
GI: Soft, Nontender, Nondistended, Normal Bowel Sounds
Extremities: No Clubbing, Cyanosis, or Edema
Neuro: Nonfocal/Grossly Intact
Psych: Calm, Cooperative
Derm: No Visible lesions
Anticipated Discharge: Within 24 hours
Subjective/Interval History
-
Date of Service: September 11, 2024
feeling better
hoping to go home later today
Objective Data
-
Labs:
Laboratory Results
09/11/24
06:49
WBC 7.0
Hgb 14.2
Hct 43.4
Plt Count 269
Sodium 136
Potassium 4.3
Chloride 105
Carbon Dioxide 22
BUN 23 H
Creatinine 0.8
Glucose 80
Calcium 9.2
Vital Signs:
Vital Signs
Temp Pulse Resp BP Pulse Ox
98.3 F 82 18 160/90 98
09/11/24 11:00 09/11/24 11:00 09/11/24 11:00 09/11/24 11:00 09/11/24 11:00
I&O
09/10/24 09/11/24 09/12/24
06:59 06:59 06:59
Intake Total 1909 / 1679
Balance 1909 / 1679
Review of Systems
-
History Source: Patient
All other systems: Reviewed and negative
Data Reviewed
-
Diagnostic Radiology: Report Reviewed by me
Labs: Labs Reviewed by me
[2024-09-11 13:45] VITALS: BP 145/87; BP_SYST 109
[2024-09-11 15:00] VITALS: BP 149/86; BP 154/84
--- NOTE | 2024-09-11 15:04 | CM ---
Addendum entered by Christina Kyle 09/11/24 15:35:
Patient for possible dc home later today.
Patient has transportation.
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
Plan: home no needs.
Original Note:
For lumbar puncture today.
Plan; home no needs anticipated.
[2024-09-11 16:13] LABS: Spinal Fluid Glucose 47 mg/dl (40-70); Spinal Fluid Protein 39 mg/dl (12-60)
[2024-09-11 16:27] LABS: Lyme Antibody Screen, EIA Negative (Negative)
[2024-09-11] MEDS: LIPITOR 40 MG PO (16:43)
[2024-09-11 16:57] LABS: CSF Color Colorless; CSF Tube # 1
[2024-09-11 16:58] LABS: CSF Tube # Clarity Clear; White Blood Cell Count/CSF 0 mm^3 (0-5)
[2024-09-11 16:59] LABS: CSF Clarity Clear; CSF Color Colorless; CSF Tube # 4; Red Cell Count/CSF 24 mm^3
[2024-09-11 17:00] LABS: Red Cell Count/CSF 1 mm^3; White Cell Count/CSF 0 mm^3 (0-5)
--- NOTE | 2024-09-11 17:25 | W.DS.TRANS ---
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
-
Discharge Instructions:
Discharge Diagnosis/Procedures Hypertensive Encephlopathy
Diet 2 Gram Sodium
Activity As tolerated
Driving Restrictions As prior to admission
Bathing Restrictions None
Instructions:
Stand-Alone Forms:
Changes to Home Medications: Yes
Discharge Medications:
DC Medications w/original date entered in [employer]
losartan 100 mg tablet 100 mg PO DAILY Blood Pressure 09/07/24
norethindrone acetate 5 mg tablet 5 mg PO DAILY HORMONE 09/07/24
aspirin 81 mg chewable tablet 81 mg PO DAILY #30 tabs 09/11/24
atorvastatin 40 mg tablet 40 mg PO HS #30 tabs 09/11/24
cholecalciferol (vitamin D3) 125 mcg (5,000 unit) tablet 125 mcg PO DAILY #30 tabs 09/11/24
nifedipine 60 mg tablet,extended release 60 mg PO BID #60 tabs 09/11/24
spironolactone 25 mg tablet 25 mg PO HS #30 tabs 09/11/24
Home Medication Changes
STOP: Amlodipine, Labetalol or Metoprolol (both were on med list), Rosuvastatin
New Blood pressure regimen:
Nifedipine 60mg twice a day
Spironolactone 25mg in evenings
Continue Losartan 100mg daily
Stop Rosuvastatin, this is replaced with Atorvastatin
You are newly started on Aspirin 81mg daily
You are started on Vitamin D Repletion
Pending Results: No
--- NOTE | 2024-09-11 17:27 | W.DCSUMMARY ---
Discharge Summary
Discharge Data
Date of Admission: 09/07/24
Date of Discharge: 09/11/24
-
Pending Results: Yes
Additional Pending Results:
MARIANELA, Anti-Ham, PR3 and MPO Ab, IgG, Myelin Oligodendrocyte Glycoprotein Ab, CSF IgG, Mylein Basic Protein, Oligoclonal Bands, VDRL
Renin/Aldosterone Ratio
Hospital Course
Discharging Physician : Dr. Lizette Ervin
Disposition : Home
Primary care physician : Dr. Pam Simpson
Principal Discharge diagnosis : Hypertensive Encephalopathy
Hospital Course :
Ms. Queenie Katz is a 48 yo woman with hx HTN, noncompliance with HTN medications presents to the ER with sudden onset of left-sided headache. Triage VS significant for BP 234/137. Stat head CT/CTA without acute pathology. Patient was
started on an IV Cardene gtt. Patient had some improvement in symptoms and decision made with Neurology to hold off on TNK. She was admitted to the ICU.
Overnight patient's symptoms improved, she was weaned off of IV Cardene and started on an oral regimen. At time of discharge, blood pressure is better controlled on: Aldactone 25mg PO qhs, Nifedipine 60mg PO BID and Losartan 100mg daily. 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
Losartan and amlodipine have been discontinued. Renin/Aldosterone ratio pending at time of discharge.
MRI without e/o acute CVA, more likely thought 2/2 blood pressure. 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 Cervical and Thoracic Spine MRI without findings of MS. Per Neurology recommendations, LP performed and
pending at time of DC include: MARIANELA, Anti-Ham, PR3 and MPO Ab, IgG, Myelin Oligodendrocyte Glycoprotein Ab, CSF IgG, Mylein Basic Protein, Oligoclonal Bands, VDRL.
Patient will follow up with her PCP and Neurology.
Time spent on discharge was 45 minutes.
Important imaging findings :
Head CT
IMPRESSION:
No acute intracranial abnormality noted.
Head/Neck CTA
IMPRESSION:
The cervical carotid and vertebral arteries are patent without significant plaque, stenosis, occlusion, or dissection.
No [place] of [place] region aneurysm or stenosis.
No cerebral artery significant plaque, stenosis, thrombus, or occlusion.
Brain MRI
IMPRESSION:
1. No MRI evidence for acute infarct or intracranial hemorrhage.
2. 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
hypertension.
3. Small disc herniations at C3/C4 and C5/C6 causing mild spinal cord compression and central canal stenosis.
Cervical and Thoracic Spine MRI
IMPRESSION:
No MRI evidence for signal alteration or abnormal postcontrast enhancement of the cervicothoracic spinal cord.
Renal Artery Duplex
IMPRESSION:
No sonographic evidence for renal artery stenosis.
TTE
CONCLUSIONS
Normal left ventricular size with hyperdynamic systolic function. LVEF 65-70%.
No regional wall motion abnormalities. Mild concentric left ventricular
hypertrophy.
Normal right ventricular size and function.
No significant valvular disease.
Bubble study is negative for intracardiac and intrapulmonary shunt.
No prior study available for comparison.
Procedure findings :
Discharge Plan
-
Patient Disposition: Home (Routine Discharge)
Discharge Diagnosis/Procedures: Hypertensive Encephlopathy
Diet: 2 Gram Sodium
Activity: As tolerated
Driving Restrictions: As prior to admission
Bathing Restrictions: None
Referrals:
Pam Simpson PA [Family Provider] - in less than 1 week
Goran Grimes MD [Active] - in three to four weeks
Additional Discharge Medication Instructions: STOP: Amlodipine, Labetalol or Metoprolol (both were on med list), Rosuvastatin
New Blood pressure regimen:
Nifedipine 60mg twice a day
Spironolactone 25mg in evenings
Continue Losartan 100mg daily
Stop Rosuvastatin, this is replaced with Atorvastatin
You are newly started on Aspirin 81mg daily
You are started on Vitamin D Repletion
Please measure your blood pressure recordings at home 90 minutes post medications and report results to your PCP
Prescriptions:
New
spironolactone 25 mg Tablet
25 mg PO HS Qty: 30 0RF
aspirin 81 mg Tablet,Chewable
81 mg PO DAILY Qty: 30 0RF
nifedipine 60 mg Tablet Extended Release
60 mg PO BID Qty: 60 0RF
cholecalciferol (vitamin D3) 125 mcg (5,000 unit) Tablet
125 mcg PO DAILY Qty: 30 0RF
atorvastatin 40 mg tablet
40 mg PO HS Qty: 30 0RF
Continued
norethindrone acetate 5 mg Tablet
5 mg PO DAILY
losartan 100 mg Tablet
100 mg PO DAILY
Discontinued
Labetalol 100 mg
100 mg PO BID
metoprolol succinate 100 mg Tablet Extended Release 24 Hr
100 mg PO DAILY
amlodipine 10 mg Tablet
10 mg PO DAILY
rosuvastatin 5 mg Tablet
5 mg PO DAILY
Discharge Orders:
Discharge Patient (As Directed); Ordered 09/11/24
Ordered By: Lizette Ervin
Discharge Date and Time
Print Language: NEPALESE
[2024-09-12 13:57] LABS: Myeloperoxidase Antibody 0 AU/mL (0-19); Serine Protease-3, IgG 3 AU/mL (0-19)
[2024-09-12 21:43] LABS: ANA, IgG Reflex to HEp-2 None Detected (None Detected)
[2024-09-14 01:08] LABS: Smith (ENA) Antibody, IgG 2 AU/mL (0-40)
[2024-09-14 13:24] LABS: Aldosterone, Serum 13.1 ng/dL; Aldosterone/Renin Activ Ratio 3.6 ratio (<=25.0); Renin Activity Results 3.6 ng/mL/hr
[2024-09-15 00:40] LABS: Myelin Basic Protein, CSF 2.57 ng/mL (0.00-5.50)
== END 2024-09-11 19:02 | disposition home or self-care (01) | DRG 78 ==
LOC: 4 WEST ACU 22:12
PROVIDERS: Family Medicine; Psychiatry & Neurology Neurology; Radiology Diagnostic Radiology; Registered Nurse; ADMITTING PHYSICIAN Internal Medicine; ATTENDING PHYSICIAN Student in an Organized Health Care Education/Training Program; CONSULT PHYSICIAN Internal Medicine Critical Care Medicine; CONSULT PHYSICIAN Psychiatry & Neurology Neurology; EMERGENCY PHYSICIAN Emergency Medicine; FAMILY PHYSICIAN Physician Assistant Medical
PROC: 009U3ZX Drainage of Spinal Canal, Percutaneous Approach, Diagnostic (ICD-10-PCS; 2024-09-11)
DX: I67.4 Hypertensive encephalopathy (principal); I16.1 Hypertensive emergency; R47.01 Aphasia; I10 Essential (primary) hypertension; D50.9 Iron deficiency anemia, unspecified; E78.00 Pure hypercholesterolemia, unspecified; N93.8 Other specified abnormal uterine and vaginal bleeding; R74.01 Elevation of levels of liver transaminase levels; I1A.0 Resistant hypertension; E26.9 Hyperaldosteronism, unspecified; E87.6 Hypokalemia; E66.09 Other obesity due to excess calories; Z68.32 Body mass index [BMI] 32.0-32.9, adult; Z91.199 Patient's noncompliance with other medical treatment and regimen due to unspecified reason; Z85.820 Personal history of malignant melanoma of skin; Z79.899 Other long term (current) drug therapy
CPT/HCPCS: 62328; 70450; 70496; 70498; 70551; 70553; 71045; 72156; 72157; 80048; 80053; 80061; 82040; 82042; 82088; 82164; 82306; 82607; 82728; 82784; 82945; 83036; 83516; 83735; 83873; 83916; 84157; 84244; 84443; 84703; 85025; 85027; 85610; 85652; 85730; 86038; 86140; 86235; 86592; 86618; 87015; 87070; 87102; 87116; 87205; 88108; 89051; 92523; 92610; 93005; 93306; 93975; 96374; 96375; 97162; 97167; 99285; A9575; J3101; Q9967

== ENCOUNTER → 2025-02-06 08:34 | Outpatient (REF) | payer BC, SELFPAY | LOC: RAD 08:34 | PROVIDERS: ATTENDING PHYSICIAN Physician Assistant; FAMILY PHYSICIAN Physician Assistant Medical | DX: E26.09 Other primary hyperaldosteronism (principal); E36.01 Intraoperative hemorrhage and hematoma of an endocrine system organ or structure complicating an endocrine system procedure | CPT/HCPCS: 74170; Q9967 ==

== ENCOUNTER 2025-02-08 15:20 | Emergency (ER) | payer BC, SELFPAY ==
[2025-02-08 15:30] VITALS: BP 151/100
[2025-02-08 15:47] LABS: % Basophils 0.8 % (0-2); % Eosinophils 0.7 % (0-6); % Immature Granulocytes 0.3 % (0-0.5); % Monocytes 6.2 % (1.7-9.3); Absolute Basophils 0.1 10^3/uL (0-0.2); Absolute Eosinophils 0.1 10^3/uL (0-0.7); Absolute Lymphocytes 1.8 10^3/uL (1.2-3.4); Absolute Monocytes 0.6 10^3/uL (0.1-0.6); Absolute Neutrophils 6.4 10^3/uL (1.4-6.5); Hematocrit 47.3 % (37.0-47.0); Hemoglobin 17.1 g/dL (12.0-16.0); Mean Corp Hgb Conc. 36.2 g/dL (33.0-37.0); Mean Corpuscular Hgb 32.7 pg (27.0-31.0); Mean Corpuscular Volume 90.4 fL (81.0-99.0); Mean Platelet Volume 9.8 fL (7.4-10.4); Nucleated Red Blood Cells % 0 %; Platelet Count 259 10^3/uL (130-400); Red Blood Cell Count 5.23 10^6/uL (4.20-5.40); Red Cell Dist. Width 12.3 % (11.5-14.5); White Blood Cell Count 8.9 10^3/uL (4.8-10.8)
[2025-02-08 16:08] LABS: ALT (SGPT) 102 U/L (0-35); AST (SGOT) 58 U/L (14-36); Albumin 5.1 g/dl (3.5-5.0); Alkaline Phosphatase 47 U/L (38-126); Blood Urea Nitrogen 13 mg/dl (7-17); Calcium 9.6 mg/dl (8.4-10.2); Carbon Dioxide 19 mmol/L (22-30); Chloride 109 mmol/L (98-107); Glucose 88 mg/dl (70-99); HCG, Serum Qualitative Screen Negative; Potassium 4.5 mmol/L (3.5-5.1); Sodium 139 mmol/L (135-145); Total Bilirubin 1.3 mg/dl (0.2-1.3); Total Protein 8.3 g/dl (6.3-8.2); eGFR > 60.00
--- NOTE | 2025-02-08 17:37 | ED.GENMED ---
History of Present Illness
General
Chief Complaint: Vaginal Bleeding
Source: patient
Exam Limitations: none
Time Seen by Provider: 02/08/25 17:20
Nursing documentation reviewed up to this point in time: agreed with
History of Present Illness
History of Present Illness:
Patient to ED with complaint of heavy vaginal bleeding. Symptoms started last PM, slowed around 2PM today. She has a known fibroid, is scheduled on 02/20 for hysteroscopy. She called the office today and was advised to come to ED. Reports
abdominal cramping.
Past History
Past History
ED Past Medical History: Arrthythmia (Benign PVCs ), Cancer (Melanoma on right thigh with 4 resections), HTN, Hypercholesterolemia and Other (Noncompliance with medical therapy, accelerated hypertension August 2024, abnl MRI of brain, migraine
with aura)
ED Past Surgical History: and Other (Thigh melanoma resection x 4, reduction mammoplasty)
Social History
Tobacco: Non-smoker
Alcohol: None
Personal:
Living: with family
Family History
Family History: Other (Colon cancer and lung cancer )
Review of Systems
Review of Systems
Allergies reviewed?: Yes
All Other Systems: ROS reviewed and negative except as documented in HPI and ROS
Constitutional: Reports no symptoms
EENT: Reports no symptoms
Respiratory: Reports no symptoms
Cardiac: Reports no symptoms
ABD/GI: Reports no symptoms
: Reports bleeding (heavy vaginal bleeding, cramping)
Musculoskeletal: Reports no symptoms
Skin: Reports no symptoms
Neurological: Reports no symptoms
Psychiatric: Reports no symptoms
Phy Exam
General Physical Exam
General Presentation: well appearing and no apparent distress
General age: appears stated age
General Skin: warm and dry
General Habitus: normal
General Mental: alert
Genitourinary Exam Female
Exam Female: no CMT and no lesions
Vaginal Exam: blood (scant amt of blood in vaginal canal No clots)
Vaginal Bleeding: minimal
Visual exam of cervix: os closed
Musculoskeletal Exam
Musculoskeletal Exam: full ROM
Skin Exam
Skin Exam: normal color, warm/dry and no rash
Psychiatric Exam
Psychiatric Exam: normal mood/affect
Course
Orders/Labs/Results
Orders:
Orders
02/08/25 15:35
Test Result ONCE
02/08/25 15:40
Type+Screen Urgent
Complete Blood Count/With Diff Urgent
Comprehensive Metabolic Panel Urgent
HCG, Serum Qualitative Screen Urgent
Abnormal Lab Results
02/08/25
15:40
Hgb 17.1 H g/dL
(12.0-16.0)
Hct 47.3 H %
(37.0-47.0)
MCH 32.7 H pg
(27.0-31.0)
Lymphocytes % 20.0 L %
(20.5-51.1)
Chloride 109 H mmol/L
(98-107)
Carbon Dioxide 19 L mmol/L
(22-30)
AST 58 H U/L
(14-36)
ALT 102 H U/L
(0-35)
Total Protein 8.3 H g/dl
(6.3-8.2)
Albumin 5.1 H g/dl
(3.5-5.0)
02/08/25 15:40
02/08/25 15:40
Vital Signs
Initial and Last Documented VS:
Initial Vital Signs
Temp Pulse Resp BP Pulse Ox
98.9 F 106 16 151/100 99
02/08/25 15:30 02/08/25 15:30 02/08/25 15:30 02/08/25 15:30 02/08/25 15:30
Last Documented Vital Signs
Temp Pulse Resp BP Pulse Ox
98 F 89 16 134/78 99
02/08/25 18:08 02/08/25 18:08 02/08/25 18:08 02/08/25 18:08 02/08/25 18:08
*Critical Care Note
Total Time (30-74mins, 75-104mins- exclusive of procedures): Not Applicable
Update Note
Update Note:
Patient advised to come to ED for heavy vaginal bleeding. has had recent MRI to confirm. Hgb/HCT 17.1/47.3. [place] Bleeding slowed at approx 2PM today. Speculum exam reveals minima blood in vaginal canal. No clots. Dr. Newsome notified of
findings. Ok to discharge home. She is currently taking norethendrone and instructed to continue. No TXA as she is currently on norethendrone. Will discharge home and she will followup as scheduled on 02/20. Given instructions on s/s to return to
ED and she is agreeable to plan.
ED Attending Note
-
Portions of this chart may have been created with voice recognition software.� Occasional wrong word or��sound alike� substitutions may have occurred due to the inherent limitations of voice recognition software.
Discharge Plan
Departure
Patient Disposition: Home (Routine Discharge)
Date of Disposition: 02/08/25
Time of Disposition: 18:03
Patient with high blood pressure during this ER visit?: No
Condition: Good
Covid-19: Not Applicable
Discharge Problem:
Episode of heavy vaginal bleeding
Instructions: Heavy periods - ED discharge instructions
Prescriptions:
No Action
norethindrone acetate 5 mg Tablet
5 mg PO DAILY
losartan 100 mg Tablet
100 mg PO DAILY
spironolactone 25 mg Tablet
25 mg PO HS Qty: 30 0RF
aspirin 81 mg Tablet,Chewable
81 mg PO DAILY Qty: 30 0RF
nifedipine 60 mg Tablet Extended Release
60 mg PO BID Qty: 60 0RF
cholecalciferol (vitamin D3) 125 mcg (5,000 unit) Tablet
125 mcg PO DAILY Qty: 30 0RF
atorvastatin 40 mg tablet
40 mg PO HS Qty: 30 0RF
Referrals:
Pam Simpson PA [Family Provider] -
Activity Restrictions/Additional Instructions:
Follow up with you hvac lead as scheduled 02/20. Return to the emergency department for any changes in/worsening of your symptoms.
Interventions
Interventions:
*Risk Screen - Suicide Last Done: 02/08/25 17:51
*General Assessment Last Done: 02/08/25 17:51
*Neglect/Abuse Screening Last Done: 02/08/25 17:51
*ED- Fall Risk Assessment Last Done: 02/08/25 17:51
*Nursing Disposition Last Done: 02/08/25 18:08
ED-Female Genitourinary Assessment Last Done: 02/08/25 17:51
Discharge Date and Time
Print Language: IRISH
[2025-02-08 18:08] VITALS: BP 134/78
== END 2025-02-08 18:09 | disposition home or self-care (01) ==
LOC: EMR 15:20
PROVIDERS: Emergency Medicine; EMERGENCY PHYSICIAN Emergency Medicine; FAMILY PHYSICIAN Physician Assistant Medical
DX: N93.9 Abnormal uterine and vaginal bleeding, unspecified (principal); R10.9 Unspecified abdominal pain; D25.9 Leiomyoma of uterus, unspecified; I10 Essential (primary) hypertension; G43.909 Migraine, unspecified, not intractable, without status migrainosus; E78.00 Pure hypercholesterolemia, unspecified; Z79.82 Long term (current) use of aspirin; Z85.820 Personal history of malignant melanoma of skin
CPT/HCPCS: 99283; 80053; 84703; 85025; 86850; 86900; 86901

== ENCOUNTER 2025-03-12 06:24 | Day surgery (SDC) | payer BC, SELFPAY ==
[2025-03-12] VITALS (8 sets, daily range): BP systolic 118–179; BP diastolic 73–106; BMI 34.5
[2025-03-12] MEDS: TYLENOL 1000 MG PO (09:42)
[2025-03-12] MEDS: NORMOSOL-R/PLASMALYTE-A 1000 IV (09:43)
[2025-03-12] MEDS: EMEND 40 MG PO (10:22)
[2025-03-12] MEDS: PROVERA 5 MG PO (11:51)
== END 2025-03-12 12:57 | disposition home or self-care (01) ==
LOC: SDS 06:24
PROVIDERS: ATTENDING PHYSICIAN Obstetrics & Gynecology
DX: C56.9 Malignant neoplasm of unspecified ovary (principal); N93.9 Abnormal uterine and vaginal bleeding, unspecified; N85.4 Malposition of uterus; Z17.0 Estrogen receptor positive status [ER+]
CPT/HCPCS: 58558; 88305; 86850; 86900; 86901; 88341; 88342; 88360

== ENCOUNTER → 2025-04-03 08:38 | Outpatient (REF) | payer BC, SELFPAY | LOC: MRI 3T 08:38 | PROVIDERS: ATTENDING PHYSICIAN Psychiatry & Neurology Neurology; FAMILY PHYSICIAN Physician Assistant Medical | DX: G35 Multiple sclerosis (principal); R90.89 Other abnormal findings on diagnostic imaging of central nervous system | CPT/HCPCS: 70553; A9575 ==

== ENCOUNTER → 2025-04-03 11:39 | Outpatient (REF) | payer BC, SELFPAY | LOC: PET 11:39 | PROVIDERS: ATTENDING PHYSICIAN Obstetrics & Gynecology Gynecologic Oncology | DX: C54.1 Malignant neoplasm of endometrium (principal); C43.9 Malignant melanoma of skin, unspecified | CPT/HCPCS: 78816; A9552 ==

== ENCOUNTER 2025-04-17 06:05 | Day surgery (SDC) | payer BC, SELFPAY ==
[2025-04-03 13:57] VITALS: BMI 32.1
--- NOTE | 2025-04-16 08:12 | W.CON.GYNONC ---
Chief Complaint
-
Endometrial cancer
History of Present Illness
This�is�a�49�year�old�G3�P3�0�0�3�white�female�referred�to�me�by�Dr.Defour.�She�has�a�complicated�history�including�hypertension,
noncompliance�with�hypertension,�had�presented�previously�to�the�ER�in�[place]�2020�for�an�was�diagnosed�with�a�stroke.�She also�has�hypercholesterolemia.�MRI�of�the�brain�does�show�some�abnormalities�which�is�locally�thought�to�be�due�to�multiple
sclerosis�however�consultation�with�outside�physicians�have�raised�the�possibility�that�this�is�related�to�chronic�hypertension.
Specifically�there�is�mild�to�moderate�white�matter�disease�in�the�frontal�and�parietal�lobes,�disc�herniations�at�C3�C4�as�well�as�C5�
C6�levels�are�seen�causing�mild�spinal�cord�compression�and�central�canal�stenosis.�Hypertension�has�been�likely�due�to hyperaldosterone�anemia.�Patient�had�been�reporting�bothersome�change�in�bleeding�pattern�including�excessive�and�prolonged
bleeding�over�the�course�of�last�year..�Patient�was�seen�in�the�ER�and�had�a�pelvic�ultrasound.�She�was�taken�to�the�operating�room
on�[place]�2,�endometrial�curettage�was�performed�which�reveals�grade�2�endometrioid�adenocarcinoma.�Tumor�is�ER�40% positive,�[place]�20%�positive.�There�is�loss�of�MLH1�and�PMS2,�MLH1�promoter�methylation�test�has�been�requested.�P53�shows�a
wild�type�pattern.
Past�gynecologic�history�:�last�Pap�smear�[place]��was�negative�menarche�was�at�12,�patient�has�had�3�prior�C�sections
Past�medical�history�significant�for�malignant�melanoma,�elevated�blood�pressure,�hyperaldosteronism
atorvastatin�40�mg�tablet 03/26/2025 0 1�p.o.�q.�day
iron�ER�159�mg�(45�mg�iron)�tablet,extended release 03/26/2025 0 1�p.o.�q.�day
losartan�100�mg�tablet 03/26/2025 0 1�p.o.�q.�day
nifedipine�ER�60�mg�tablet,extended�release 03/26/2025 0 1�p.o.�q.�day
spironolactone�25�mg�tablet 03/26/2025 0 1�p.o.�q.�day
Vitamin�D3�25�mcg�(1,000�unit)�tablet 03/26/2025 0 1�p.o.�q.�day
Past�surgical�history�significant�for�C�section�x�3�excision�of�melanoma,�reduction�mammoplasty�as�well�as�excision�of�bilateral fallopian�tubes
Family�history�significant�for�a�distant�cousin�with�breast�cancer
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
Medical History
Allergies
Allergies reflect when allergies were last updated in [facility].
No Known Allergies Allergy (Verified 04/10/25 10:38)
Physical Exam
Physical Exam
External�normal�labia,�urethra,�anus.� Vagina:�Normal�mucosa.� Cervix:�normal�appearance,�no�discharge.� Uterus:�normal�size.�no�parametrial�involvement Adnexa:�No�pelvic�mass.� RVE:�no�masses�or�nodularity
General:�Well�developed,�well�nourished�patient.�In�no�acute�distress. Neck:�No�thyromegaly.�No�cervical�lymphadenopathy. Lungs:�Clear�to�auscultation.�Good�air�movement�bilaterally. Cardiac:�Regular�rate.�Regular�rhythm.�No�murmurs�appreciated.
Right�Breast:�No�masses�or�dimpling.�No�nipple�discharge. Left�Breast:�No�masses�or�dimpling.�No�nipple�discharge. Abdomen:�Abdomen�is�soft.�Non�tender�to�palpation.�Non�distended. Extremities:�No�edema.
Hematologic/Lymphatic:�No�palpable�lymphadenopathy. Musculoskeletal:�Normal�range�of�motion.�Strength�and�Tone�are�normal. Skin:Non�jaundiced.�No�petechia.�No�purpura. Neurologic:�Speech�is�fluent.�Normal�gait�and�station.�Cranial�nerves�intact.
Results
-
[facility]
[address] [place] [address]
[phone]
Patient Name: SOLIS GALLEGOS
: 1975
Unit Number: [id number]
Age/Sex: 49/F
Patient
Location: PET
Order Provider: Ricky Byers MD
Exam Service Date: 04/03/25

PET Scan Report
SignedOrder #:[id number]
Exams: PT Pet Wbi W/CT Whole Body
PET/CT head to feet
IMPRESSION:
[Focus of moderate to markedly intense FDG avid uptake centrally in the uterus compatible with the patient's primary endometrial carcinoma.
No additional focus of FDG uptake suspicious for malignancy.]
CLINICAL HISTORY: [49] year-old female with Endometrial carcinoma as well as prior history of Melanoma. for [initial therapy encounter. Patient has a history of endometrial biopsy March 12, 2025 and prior history of extremity Melanoma in 2017.
COMPARISON: None.
PET/CT TECHNIQUE: This PET/CT study was performed at [facility] on April 03, 2025
70 minutes post-injection of 11.0 mCi F-18 FDG in a left forearm vein at 1151 hours axial, coronal and sagittal PET reconstructions with and without attenuation correction were obtained. Images were acquired from [<head to the feet.. A low-dose
non-diagnostic unenhanced CT was obtained for attenuation correction and anatomic correlation only. The serum glucose at the time of the exam was 101 mg/dL.
FINDINGS:
Head and Neck: [There is no soft tissue focus of FDG uptake suspicious for malignancy.]
Chest: [There is no soft tissue focus of FDG uptake suspicious for malignancy.]
Abdomen and pelvis: [FDG uptake is seen centrally in the uterus with maximum SUV of 22.4. No other significant soft tissue focus of FDG uptake is seen. There is physiologic urinary tract and intestinal activity.]
Musculoskeletal: Small soft tissue focus of FDG activity is seen within the left forearm correlating with site of isotope injection. No focus of FDG uptake is seen suspicious for malignancy.
Electronically signed by Ricky Saenz MD, 04/03/2025 2:21 PM
Dictated By: Ricky Saenz MD.
Dictated Date & Time: 04/03/25 1416
Impression / Plan
-
49�year�old�woman�with�obesity�BMI�33,�80�pound�weight�loss�last�year,�hypertension�and�hypercholesterolemia�now�with�new diagnosis�of�grade�2�endometrioid�adenocarcinoma.�I�gave�her�a�copy�of�the�pathology�result�and�explained�differences�between
stage�and�grade�and�went�through�the�report�with�her�in�detail�I�discussed�the�incidence�management�and�presentation�and�workup
and�treatment�of�endometrial�cancer�with�the�patient�today.�Workup�of�endometrial�cancer�was�recommended�to�her�sometime�ago
but�there�was�delay�because�of�her�having�hypertension�as�well�as�stroke.�She�seems�to�have�those�issues�under�stable�situation
I�am�recommending�a�baseline�PET�CT�scan�to�assess�extent�of�disease�given�the�fact�that�she�also�has�diagnosis�of�malignant melanoma�of�lower�extremity. A�baseline�set�of�labs�including�CMP�CBC�CA125�coagulation�studies�hCG�FSH�will�be�done
The�patient�has�MSI�high�pattern�on�her�histology,�myriad�myRisk�panel�will�be�done�for�genetic�testing�although�it�is�possible�that her�tumor�has�MLH1�hyper�methylation�only.
I�am�recommending�treatment�with�robotic�assisted�total�laparoscopic�hysterectomy�bilateral�salpingo�oophorectomy�as�well�as
staging�with�sentinel�lymph�nodes,�surgery�will�be�done�at[facility]�I�reviewed�the�procedure�in�detail�with�the�patient
risks�including�infection�bleeding�injury�to�adjacent�organs�DVT�pulmonary�embolism�and�cardiovascular�complications�were discussed�with�the�patient�and�informed�consent�was�signed�in�the�office�today
Preoperative�clearance�will�be�obtained�from�PCP�and�cardiology�prior�to�surgery The�patient�has�never�had�a�mammogram�and�was�recommended�to�obtain�one�sometimes�between�now�and�in�the�summer
The�patient�will�be�referred�to�dermatology�at�[facility]�so�that�she�can�have�annual�examinations�for�follow�up�of�her�malignant melanoma,�she�has�not�had�a�follow�up�for�a�few�years�after�discharge�from�[facility]
[2025-04-17] VITALS (14 sets, daily range): BP systolic 116–180; BP diastolic 74–104; BMI 32.1
[2025-04-17] MEDS: NEURONTIN 300 MG PO (07:13)
[2025-04-17] MEDS: CELEBREX 200 MG PO (07:13)
[2025-04-17] MEDS: TYLENOL 1000 MG PO (07:14)
[2025-04-17] MEDS: HEPARIN 5000 UNITS SC (07:14)
[2025-04-17] MEDS: NORMOSOL-R/PLASMALYTE-A 1000 IV (07:19)
[2025-04-17] MEDS: TRANSDERM-SCOP 1 PATCH TRANSDERM (07:30)
--- NOTE | 2025-04-17 09:39 | W.IMMPOSTOP ---
Surgical Immed Post Op Note
-
Date of Procedure: 04/17/2025
Primary Surgeon: Ricky Byers MD
Assisting Surgeon: Bryan Jimenez PA-C
Pre-op Diagnosis: Endometrial Ca
Post-op Diagnosis: Same, Pelvic Adhesions
Procedure Performed:
Robotic Total Laparoscopic Hysterectomy, BSO, Pelvic washings
Robotic assisted laparoscopic intra-abdominal enterolysis
Injection of cervix with ICG dye, bilateral, for mapping and identification of sentinel lymph nodes
Robotic assisted laparoscopic bilateral pelvic sentinel lymphadenectomy
Transverse abdominal plane block
Anesthesia Type: General Endotracheal intubation
Specimen / Cultures: Uterus and cervix, bilateral tubes and ovaries, right obturator sentinel lymph node, left external iliac sentinel lymph node
Estimated Blood Loss: 50 cc
Complications: None
Operative Findings: Survey of the abdomen reveals upper abdomen including liver spleen stomach diaphragms to be within normal limits, there is thick band of adhesion between the omentum to the anterior abdominal wall in multiple areas, and the
pelvis uterus and cervix bilateral tubes and ovaries appear to be within normal limits, there is no ascites or pelvic implants. There is no retroperitoneal enlarged lymph nodes enlargement.
--- NOTE | 2025-04-17 09:44 | OR.RPT ---
Operative Report
Operative Report
Date of Procedure: 04/17/2025
Primary Surgeon: Ricky Byers MD
Assisting Surgeon: Bryan Jimenez PA-C
Pre-op Diagnosis: Endometrial Ca
Post-op Diagnosis: Same, Pelvic Adhesions
Procedure Performed:
Robotic Total Laparoscopic Hysterectomy, BSO, Pelvic washings
Robotic assisted laparoscopic intra-abdominal enterolysis
Injection of cervix with ICG dye, bilateral, for mapping and identification of sentinel lymph nodes
Robotic assisted laparoscopic bilateral pelvic sentinel lymphadenectomy
Transverse abdominal plane block
Anesthesia Type: General Endotracheal intubation
Specimen / Cultures: Uterus and cervix, bilateral tubes and ovaries, right obturator sentinel lymph node, left external iliac sentinel lymph node
Estimated Blood Loss: 50 cc
Complications: None
Operative Findings: Survey of the abdomen reveals upper abdomen including liver spleen stomach diaphragms to be within normal limits, there is thick band of adhesion between the omentum to the anterior abdominal wall in multiple areas, and the
pelvis uterus and cervix bilateral tubes and ovaries appear to be within normal limits, there is no ascites or pelvic implants. There is no retroperitoneal enlarged lymph nodes enlargement.
Procedure in detail: This patient was brought to the operating room placed in supine position, general anesthesia was administered she was intubated without any difficulty. Arms were wrapped in foam and placed along the patient's side and protected
across all joints. The patient was placed in dorsolithotomy position using yellowfin stirrups. The patient was prepped and draped on the abdomen perineum and vagina and upper thighs. Timeout procedure was carried out, she received appropriate
antibiotics and had received DVT prophylaxis. Next Ogden catheter was placed under sterile conditions for drainage of the bladder. We examined the cervix, anterior lip was grasped with single-tooth tenaculum. Cervix was injected with ICG dye at 3
and 9:00 positions with a total of 4 cc ICG dye injected at 5 mm and 10 mm depth. I was able to dilate the uterus which sounded to 7 cm, uterine manipulator roofing supervisor type with 3.5 cm MEJIA ring was inserted into the uterine cavity, vaginal cuff
occluder was insufflated. Attention was turned to the abdomen, Veress needle was inserted just below the left subcostal margin and pneumoperitoneum was created with CO2 gas up to pressure of 15 mmHg. 8 mm X I trocar was inserted just 25 cm
cephalad to symphysis pubis into the peritoneal cavity, inspection with camera revealed adhesions along the midline which were prohibitive initially but we were able to place the right and left upper quadrant 8 mm excised ports as well as 8 mm
excised ports in the right and left lateral abdomen. Following this we used sharp scissors to take down some of these adhesions prior to docking the robotic system. Tap block was performed with a total of 60 cc ropivacaine and Decadron mixture
injected 2 fingerbreadths below right and left lateral aspect of subcostal margin under direct visualization distributed equally as well as right and left mid abdomen. Once this was completed the patient was placed in the lithotomy position a 28
degrees, robotic system was docked. We spent approximately 20 minutes performing lysis of adhesion of omental adhesions in order to provide visualization of pelvic organs. Washings were collected from posterior cul-de-sac. Right and left round
ligaments were sealed and divided anterior and posterior leaves of the broad ligament were dissected open, the IP ligaments were isolated and a window was created between IP ligaments of ureters both IP ligaments were sealed and divided next we used
the firefly system and inspected the retroperitoneal spaces. Men[place] lymph nodes were excised from the left external iliac vein area as well as right obturator fossa. There was no injury to adjacent blood vessels nerves or ureter. Next bladder
flap was sharply developed and advanced below the cervicovaginal junction here she had also extensive fibrotic adhesions which carefully was sharply divided. Uterine arteries were sealed after they were skeletonized and divided bilaterally.
Uterosacral ligaments remainder of the paracervical tissue was sealed and divided circumferential incision was made over the MEJIA ring until the specimen was detached. We were able to remove uterus and cervix bilateral tubes and ovaries from the
vagina. The vaginal apex was closed with [id number] sutures of 0 Vicryl incorporating uterosacral ligaments for support on right and left sides separately. 3-0 Vicryl suture was used to control small bleeding vessels in the left parametria
carefully while considering and visualizing the course of ureter separately. The vaginal cuff otherwise was closed with a running suture of V-Loc suture starting from right to the left side and a second layer coming back to the right side. Pelvis
was irrigated and there was no evidence of bleeding. All laparoscopic ports were removed robotic system was docked and pneumoperitoneum was released. The skin incisions were closed with 4-0 Monocryl in a subcuticular fashion. There was no
indication to close the fascia as all port sites were below 8 mm in size. Ogden catheter was removed uterine manipulator had already been removed and the vagina was irrigated and there was no lacerations present. Patient was awakened extubated and
returned back to recovery room stable awake and extubated condition counts of laps instruments and needle was correct x 2. I was present and scrubbed for entire procedure as dictated above
Disposition: To PACU stable awake and extubated
[2025-04-17] MEDS: ZOFRAN 4 MG IV (09:47)
[2025-04-17] MEDS: DILAUDID 0.25 MG IV (10:03)
[2025-04-17] MEDS: COMPAZINE 5 MG IV (10:22)
[2025-04-17] MEDS: TYLENOL 650 MG PO (12:59)
== END 2025-04-17 14:40 | disposition home or self-care (01) ==
LOC: SDS 06:05
PROVIDERS: ATTENDING PHYSICIAN Obstetrics & Gynecology Gynecologic Oncology; FAMILY PHYSICIAN Physician Assistant Medical
DX: C54.1 Malignant neoplasm of endometrium (principal); D25.9 Leiomyoma of uterus, unspecified; N73.6 Female pelvic peritoneal adhesions (postinfective); N85.8 Other specified noninflammatory disorders of uterus
CPT/HCPCS: 58571; 36415; 86850; 86900; 86901; 88112; 88307; 88309; 88341; 88342

== ENCOUNTER → 2025-05-15 11:32 | Outpatient (REF) | payer BC, SELFPAY | LOC: HWWDC 11:32 | PROVIDERS: ATTENDING PHYSICIAN Physician Assistant Medical; REFERRING PHYSICIAN Obstetrics & Gynecology Gynecologic Oncology | DX: Z12.31 Encounter for screening mammogram for malignant neoplasm of breast (principal) | CPT/HCPCS: 77063; 77067 ==

== ENCOUNTER → 2025-05-29 09:12 | Outpatient (REF) | payer BC, SELFPAY | LOC: HWRAD 09:12 | PROVIDERS: ATTENDING PHYSICIAN Internal Medicine; FAMILY PHYSICIAN Physician Assistant Medical | DX: K76.1 Chronic passive congestion of liver (principal) | CPT/HCPCS: 76700 ==

== ENCOUNTER → 2025-07-24 08:41 | Outpatient (REF) | payer BC, SELFPAY | LOC: RAD 08:41 | PROVIDERS: ATTENDING PHYSICIAN Internal Medicine; FAMILY PHYSICIAN Physician Assistant Medical | DX: M81.0 Age-related osteoporosis without current pathological fracture (principal) | CPT/HCPCS: 77080 ==